=== PATIENT | female | born 1940 | race Caucasian/White ===

== ENCOUNTER 2023-01-26 08:52 | Outpatient (CLI) | payer OTHER, SELFPAY ==
--- NOTE | ~2023-01-26 | CT_ITS ---
Clinical Indication: Lymphoblastic lymphoma CT Scan of the Chest, Abdomen, and Pelvis without Contrast: Technique: Contiguous sections were acquired throughout the chest, abdomen, and pelvis without IV con trast administration. Dose reduction technique was used on this scan by utilizing automated exposure control and iterative reconstruction technique. The dose-length product (DLP) was 447.72 mGy-cm. Findings: There is no evidence of any significant mediastinal, hilar or axillary lymphadenopathy. The mediastin al soft tissues appear normal. There is no evidence of pleural or pericardial effusion. The lungs are clear. No pulmonary nodules or infiltrates are noted. The liver, spleen, pancreas, gallbladder, adrenals and kidneys are within normal limits. There are at herosclerotic calcifications of the aorta. No lymphadenopathy. No bowel obstruction or bowel wall thickening. There is no evidence to suggest acute appendicitis. Urinary bladder is unremarkable. No pelvic mass seen. No ascites. Mild compression deformity at the s uperior endplate of T11 present. Impression: No evidence for active malignancy or metastatic disease. No lymphadenopathy. Mild T11 compression fracture. Reviewed, dictated and finalized at location . RINTENDENT METERS Impression: No evidence for active malignancy or metastatic disease. No lymphadenopathy. Mild T11 compression fracture.
== END 2023-01-26 08:53 | disposition home or self-care (01) ==
PROVIDERS: PCP Family Medicine; Visit Provider Internal Medicine Hematology & Oncology
DX: C83.00 Small cell B-cell lymphoma, unspecified site (principal); M48.54XA Collapsed vertebra, not elsewhere classified, thoracic region, initial encounter for fracture
CPT/HCPCS: 36415; 71250; 74176; 80053; 82784; 83883; 84155; 84165; 85025; 85810

== ENCOUNTER 2023-01-26 09:28 | Outpatient (CLI) | payer OTHER, SELFPAY ==
[2023-01-26 10:20] LABS: Eosinophils Absolute Auto 0.1 K/mm3 (0-0.3); Eosinophils Percent Auto 1.4 % (0-4.4); Hematocrit 37.9 % (37.0-47.0); Immature Granulocyte Absolute 0.01 K/mm3 (0.00-0.031); Immature Granulocyte Percent A 0.2 % (0-0.5); Lymphocytes Absolute Auto 1.03 K/mm3 (0.9-3.2); Lymphocytes Percent Auto 24.6 % (18.3-44.2); Mean Corpuscular HGB Conc 34.3 g/dl (32-36); Mean Corpuscular Hemoglobin 33.7 pg (26-34); Mean Corpuscular Volume 98.2 fl (80-100); Monocytes Absolute Auto 0.4 K/mm3 (0.1-0.6); Monocytes Percent Auto 8.6 % (2.6-8.5); Neutrophils Absolute Auto 2.7 K/mm3 (1.3-6.7); Neutrophils Percent Auto 64.2 % (45.5-73.1); Platelet Count Result 344 k/mm3 (150-375); Red Blood Count 3.86 M/mm3 (4.2-5.4); Red Cell Distribution Width 13.2 % (11.5-14.5); White Blood Count 4.2 K/mm3 (4.5-10.0)
[2023-01-26 16:59] LABS: Potassium 4.2 mmol/L (3.4-5.0)
[2023-01-26 17:04] LABS: Alanine Aminotransferase 23 U/L (6-35); Albumin Level 3.5 g/dL (3.5-5.1); Alkaline Phosphatase 47 U/L (38-126); Anion Gap 6 mmol/L (8-16); Aspartate Amino Transferase 24 U/L (14-36); Bilirubin,Total 0.4 mg/dL (0.2-1.3); Blood Urea Nitrogen 22 mg/dL (7-17); Calcium 12.2 mg/dL (8.4-10.2); Carbon Dioxide 31 mmol/L (22-30); Chloride 103 mmol/L (98-107); Estimated Glomerular Filt Rate 60; Glucose 109 mg/dL (65-110); Sodium 140 mmol/L (137-145)
[2023-01-26 17:05] LABS: Immunoglobulin A < 40 mg/dL (70-400); Immunoglobulin G < 270 mg/dL (700-1600)
[2023-01-26 19:28] LABS: Immunoglobulin M 3866 mg/dL (40-230)
[2023-01-28 15:05] LABS: Abnormal Protein Band 1 2.5 g/dL; Albumin 3.4 g/dL (3.8-4.8); Alpha 1 Globulin 0.3 g/dL (0.2-0.3); Alpha 2 Globulin 0.7 g/dL (0.5-0.9); Beta 1 Globulin 0.4 g/dL (0.4-0.6); Gamma Globulin 2.9 g/dL (0.8-1.7)
[2023-01-28 15:35] LABS: Viscosity 2.6 rel to H2O (1.5-1.9)
[2023-01-30 21:33] LABS: Kappa\\Lambda Light Chains 18.39 (0.26-1.65); Lambda Light Chain 4.6 mg/L (5.7-26.3)
== END 2023-01-26 09:29 | disposition home or self-care (01) ==
PROVIDERS: PCP Family Medicine; Visit Provider Internal Medicine Hematology & Oncology
DX: C83.00 Small cell B-cell lymphoma, unspecified site (principal)
CPT/HCPCS: 36415; 80053; 82784; 83883; 84155; 84165; 85025; 85810

== ENCOUNTER 2023-02-04 12:12 | Outpatient (CLI) | payer OTHER, SELFPAY ==
--- NOTE | ~2023-02-04 | XR_ITS ---
EXAMINATION: BONE SURVEY/METASTATIC SURVEY INDICATION: Hypercalcemia TECHNIQUE: A skeletal survey was performed including AP views of the chest, abdomen and pelvis; AP an d lateral/lateral swimmers views of the cervical, thoracic and lumbar spine; lateral view of the skul l, and AP and lateral views of the appendicular skeleton excluding the hands and feet. COMPARISON: 01/26/2023 FINDINGS: No lytic or blastic osseous abnormality is identified. A T11 compression fracture is again noted. There is mild sacroiliac joint sclerosis on the right. Mild hip osteoarthritis is noted. There is mild lumbar spondylosis with 4 mm of anterolisthesis of L4 on L5. There is moderate to severe cer vical spondylosis. The lungs are clear. A moderate volume of colonic stool is present. IMPRESSION: 1. No radiographic correlate for hypercalcemia. Reviewed, dictated and finalized at location F.
[2023-02-04 14:13] LABS: Parathyroid Intact 30.4 pg/mL (7.5-53.5)
[2023-02-04 14:26] LABS: Vitamin D 25 Hydroxy 36.4 ng/mL
== END 2023-02-04 12:13 | disposition home or self-care (01) ==
LOC: ANHIMG 12:18
PROVIDERS: PCP Family Medicine; Visit Provider Internal Medicine Hematology & Oncology
DX: E83.52 Hypercalcemia (principal)
CPT/HCPCS: 36415; 77075; 82306; 83970

== ENCOUNTER 2023-04-14 12:23 | Outpatient (CLI) | payer OTHER, SELFPAY ==
[2023-04-14 12:36] LABS: Basophils Absolute Auto 0.1 K/mm3 (0.0-0.1); Eosinophils Absolute Auto 0.1 K/mm3 (0-0.3); Eosinophils Percent Auto 1.9 % (0-4.4); Hematocrit 36.3 % (37.0-47.0); Hemoglobin 12.4 g/dL (12.0-15.0); Immature Granulocyte Absolute 0.02 K/mm3 (0.00-0.031); Immature Granulocyte Percent A 0.4 % (0-0.5); Lymphocytes Absolute Auto 1.38 K/mm3 (0.9-3.2); Lymphocytes Percent Auto 26.7 % (18.3-44.2); Mean Corpuscular HGB Conc 34.2 g/dl (32-36); Mean Corpuscular Hemoglobin 34.2 pg (26-34); Monocytes Absolute Auto 0.5 K/mm3 (0.1-0.6); Monocytes Percent Auto 10.3 % (2.6-8.5); Neutrophils Absolute Auto 3.1 K/mm3 (1.3-6.7); Neutrophils Percent Auto 59.7 % (45.5-73.1); Platelet Count Result 330 k/mm3 (150-375); Red Blood Count 3.63 M/mm3 (4.2-5.4); Red Cell Distribution Width 13.2 % (11.5-14.5); White Blood Count 5.2 K/mm3 (4.5-10.0)
[2023-04-14 17:12] LABS: Alanine Aminotransferase 24 U/L (6-35); Albumin Level 3.6 g/dL (3.5-5.1); Alkaline Phosphatase 53 U/L (38-126); Anion Gap 6 mmol/L (8-16); Aspartate Amino Transferase 25 U/L (14-36); Bilirubin,Total 0.3 mg/dL (0.2-1.3); Blood Urea Nitrogen 22 mg/dL (7-17); Calcium 12.3 mg/dL (8.4-10.2); Carbon Dioxide 30 mmol/L (22-30); Chloride 102 mmol/L (98-107); Estimated Glomerular Filt Rate 60; Glucose 118 mg/dL (65-110); Potassium 4.4 mmol/L (3.4-5.0); Sodium 138 mmol/L (137-145)
== END 2023-04-14 12:24 | disposition home or self-care (01) ==
LOC: ANHLAB 12:25
PROVIDERS: PCP Family Medicine; Visit Provider Internal Medicine Hematology & Oncology
DX: E83.52 Hypercalcemia (principal)
CPT/HCPCS: 36415; 80047; 80053; 85025

== ENCOUNTER 2023-06-11 12:44 | Outpatient (CLI) | payer OTHER, SELFPAY ==
[2023-06-11 13:01] LABS: Basophils Absolute Auto 0.1 K/mm3 (0.0-0.1); Eosinophils Absolute Auto 0.1 K/mm3 (0-0.3); Eosinophils Percent Auto 1.6 % (0-4.4); Hematocrit 36.3 % (37.0-47.0); Hemoglobin 12.7 g/dL (12.0-15.0); Immature Granulocyte Absolute 0.01 K/mm3 (0.00-0.031); Immature Granulocyte Percent A 0.2 % (0-0.5); Lymphocytes Absolute Auto 1.11 K/mm3 (0.9-3.2); Lymphocytes Percent Auto 22.2 % (18.3-44.2); Mean Corpuscular Hemoglobin 34.4 pg (26-34); Mean Corpuscular Volume 98.4 fl (80-100); Mean Platelet Volume 8.9 fl (7.4-10.4); Monocytes Absolute Auto 0.3 K/mm3 (0.1-0.6); Neutrophils Absolute Auto 3.5 K/mm3 (1.3-6.7); Platelet Count Result 325 k/mm3 (150-375); Red Blood Count 3.69 M/mm3 (4.2-5.4)
[2023-06-14 15:32] LABS: Kappa\\Lambda Light Chains 19.29 (0.26-1.65); Lambda Light Chain 4.1 mg/L (5.7-26.3)
[2023-06-15 10:36] LABS: Abnormal Protein Band 1 2.9 g/dL; Albumin 4.1 g/dL (3.8-4.8); Alpha 1 Globulin 0.3 g/dL (0.2-0.3); Alpha 2 Globulin 0.7 g/dL (0.5-0.9); Beta 1 Globulin 0.5 g/dL (0.4-0.6); Gamma Globulin 3.2 g/dL (0.8-1.7)
== END 2023-06-11 12:45 | disposition home or self-care (01) ==
LOC: ANHLAB 12:46
PROVIDERS: PCP Family Medicine; Visit Provider Internal Medicine Hematology & Oncology
DX: C88.0 Waldenstrom macroglobulinemia (principal)
CPT/HCPCS: 36415; 80053; 82784; 83883; 84155; 84165; 85025

== ENCOUNTER 2023-06-17 12:56 | Outpatient (CLI) | payer OTHER, SELFPAY ==
[2023-06-18 01:47] LABS: Alanine Aminotransferase 20 U/L (6-35); Albumin Level 4.4 g/dL (3.5-5.1); Alkaline Phosphatase 57 U/L (38-126); Anion Gap 7 mmol/L (4-12); Aspartate Amino Transferase 27 U/L (14-36); Bilirubin,Total 0.6 mg/dL (0.2-1.3); Blood Urea Nitrogen 20 mg/dL (7-17); Calcium 10.7 mg/dL (8.4-10.2); Carbon Dioxide 26 mmol/L (22-30); Chloride 106 mmol/L (98-107); Estimated Glomerular Filt Rate > 60; Glucose 109 mg/dL (65-110); Potassium 4.9 mmol/L (3.4-5.0); Sodium 139 mmol/L (137-145)
[2023-06-18 02:32] LABS: Immunoglobulin A < 270 mg/dL (70-400); Immunoglobulin G < 40 mg/dL (700-1600)
[2023-06-18 02:35] LABS: Immunoglobulin M 1520 mg/dL (40-230)
[2023-06-22 22:02] LABS: Beta-2-Microglobulin 2.31 mg/L (<=2.51)
== END 2023-06-17 12:57 | disposition home or self-care (01) ==
PROVIDERS: PCP Family Medicine; Visit Provider Internal Medicine Hematology & Oncology
DX: C88.0 Waldenstrom macroglobulinemia (principal)
CPT/HCPCS: 36415; 80053; 82232; 82784

== ENCOUNTER 2023-07-07 00:44 | Day surgery (SDC) | payer OTHER, SELFPAY ==
[2023-07-06 17:35] VITALS: BMI 25.3
--- NOTE | ~2023-07-07 | BM_ITS ---
EXAMINATION: CCL bone marrow asp w bx diag ORDER COMPLETED DATE: 07/07/2023 10:14 INDICATION: Waldenstrom's macroglobulinemia TECHNIQUE: A time-out was performed to verify the patient's name, date of , and procedure to b e performed. The procedure including the risks and benefits was discussed with the patient. Risks dis cussed included bleeding, infection, nerve injury and allergic reaction. The patient understood the r isks and agreed to proceed. The skin overlying the right posterior iliac spine was prepped and draped in usual sterile fashion. Anesthetic was administered with 1% lidocaine subcutaneously. Moderate co nscious sedation was achieved with 50 mcg fentanyl IV. An 11 gauge needle was inserted into the right ilium with fluoroscopic guidance. Bone marrow was aspirated. An 8 gauge needle was then inserted int o the right ilium with fluoroscopic guidance. A core bone marrow biopsy was obtained. The needle was removed and the entry site was cleaned and dressed. There were no immediate complications. A total o f 17 fluoroscopic images were recorded. Fluoroscopy exposure time was 0.1 minutes. FINDINGS: Real-time fluoroscopy demonstrates the biopsy needle tip overlying the right posterior tomas c spine. IMPRESSION: 1. Successful fluoroscopic guided bone marrow aspiration. 2. Successful fluoroscopic guided bone marrow biopsy. Reviewed, dictated and finalized at location A.
[2023-07-07 07:56] VITALS: BP 122/63; PULSE 62; RESP 16; TEMP 36.6; O2SAT 100
[2023-07-07 08:51] LABS: Basophils Absolute Auto 0.1 K/mm3 (0.0-0.1); Basophils Percent Auto 1.2 % (0.2-1.2); Eosinophils Absolute Auto 0.1 K/mm3 (0-0.3); Eosinophils Percent Auto 2.9 % (0-4.4); Hematocrit 34.7 % (37.0-47.0); Hemoglobin 11.9 g/dL (12.0-15.0); Immature Granulocyte Absolute 0.01 K/mm3 (0.00-0.031); Immature Granulocyte Percent A 0.2 % (0-0.5); Lymphocytes Absolute Auto 1.21 K/mm3 (0.9-3.2); Lymphocytes Percent Auto 29.2 % (18.3-44.2); Mean Corpuscular HGB Conc 34.3 g/dl (32-36); Mean Corpuscular Volume 99.1 fl (80-100); Mean Platelet Volume 9.1 fl (7.4-10.4); Monocytes Absolute Auto 0.5 K/mm3 (0.1-0.6); Monocytes Percent Auto 11.1 % (2.6-8.5); Neutrophils Absolute Auto 2.3 K/mm3 (1.3-6.7); Neutrophils Percent Auto 55.4 % (45.5-73.1); Platelet Count Result 308 k/mm3 (150-375); Red Cell Distribution Width 13.2 % (11.5-14.5); White Blood Count 4.1 K/mm3 (4.5-10.0)
[2023-07-07 09:19] LABS: INR 1.1
--- NOTE | 2023-07-07 09:22 | WPDMODSED ---
Moderate Sedation Note-Pt Data Patient Data Diagnosis: Waldenstrom macroglobulinemia Present Complaint: Waldenstrom macroglobulinemia Procedure to be performed/Plan: bone marrow biopsy Allergies Allergy/AdvReac Type Severity Reaction Status Date / Time Penicillins Allergy Mild Hives Verified 07/07/23 07:49 aspirin Allergy Hives Verified 07/07/23 07:49 Iodinated Contrast Media Allergy Rash Verified 07/07/23 07:49 lactose Allergy gi issues Verified 07/07/23 07:49 diphenhydramine AdvReac Mild Anxiety Verified 07/07/23 07:49 [From Benadryl] pseudoephedrine AdvReac Mild Anxiety Verified 07/07/23 07:49 [From Sudafed] dye injections Allergy Severe Hives Uncoded 07/07/23 07:49 steroids Allergy Mild Anxiety Uncoded 07/07/23 07:49 Home Medications Medication Instructions Recorded Confirmed Type clindamycin HCl 300 mg capsule 300 mg PO QID 07/06/23 07/06/23 History Sedation/Anesthesia: No previous sedation/anesthesia problems (including family history). [facility] Past Medical History Medical History Allergies Anxiety Arthritis Waldenstrom macroglobulinemia (~2017) Surgical History Surgical History History of appendectomy (~1982) History of colonoscopy (~01/13/11) History of cone biopsy of cervix (~1981) History of total abdominal hysterectomy (~1982) History of tubal ligation (~1979) Family History Family History Father Heart disease Son Heart disease Unknown DVT (deep venous thrombosis) Cerebrovascular accident Mother Dementia Social History Social History Social History: Moved to area from [place], [place]. She lives alone. She relocated to be near her daughter. Smoking packs per day: 0.25 Smoking cigarettes per day: 5.0 Years smoked: 8 Smoking pack-years: 2.00 Smoking status: Former smoker Tobacco type: cigarettes Second hand tobacco smoke exposure: Yes Smoking end date: 03/16/19 Alcohol intake: current Alcohol use details: socially Substance use: never Substance use type: does not use Lack of Transportation: No Lack of Food: Never True Current Housing: I Have Housing Concerned About Future Housing: No Difficulty Paying Gas/Electric Bills: No Difficulty Paying for Meds: No Currently Unemployed: No Education: High School Diploma/GED Difficulty w/ Childcare or Family Care: No Living arrangements: alone Spiritual care concerns: No Agree to blood products: Yes Mod Sed Physical Exam Physical Exam Pre Procedural Exam: Normal: Appearance, Eyes, Throat, Lungs, Heart Rate and Heart Rhythm Hours since solid foods: 12 Hours since liquid intake: 12 Mallampati Classification: class II Internal Medicine - PN: Obj Da Vital Signs Vital Signs: Vital Signs - 24 hr 07/07/23 07:56 Temperature 97.8 F Pulse Rate 62 Respiratory Rate 16 Blood Pressure 122/63 Pulse Oximetry 100 Oxygen Delivery Room Air Labs 07/07/23 08:50 Labs: Laboratory Results - last 24 hr 07/07/23 08:50 WBC 4.1 L RBC 3.50 L Hgb 11.9 L Hct 34.7 L MCV 99.1 MCH 34.0 MCHC 34.3 RDW 13.2 Plt Count 308 MPV 9.1 Immature Gran % (Auto) 0.2 Neut % (Auto) 55.4 Lymph % (Auto) 29.2 Otero % (Auto) 11.1 H Eos % (Auto) 2.9 Baso % (Auto) 1.2 Lymph # (Auto) 1.21 Otero # (Auto) 0.5 Eos # (Auto) 0.1 Baso # (Auto) 0.1 Abs Immat Gran (auto) 0.01 Absolute Neuts (auto) 2.3 Absolute Nucleated RBC 0.000 Nucleated RBC % 0.0 PT 15.0 H INR 1.1 ASA Classification/Sedation ASA Classification/Sedation ASA Class: II Emergent: No Risks: Risks, benefits and alternatives explained and patient/family accepted plan for sedation. Patient re-evaluated immediately prior to sedation.
[2023-07-07 09:53] VITALS: BP 130/55; PULSE 61; RESP 14; TEMP 36.6; O2SAT 98
[2023-07-07 10:00] VITALS: BP 125/71; PULSE 58; RESP 18; O2SAT 98
[2023-07-07 10:15] VITALS: BP 118/71; PULSE 61; RESP 18; O2SAT 94
[2023-07-07 10:30] VITALS: BP 111/62; PULSE 70; RESP 14; O2SAT 98
[2023-07-07 10:45] VITALS: BP 111/60; PULSE 60; RESP 15; TEMP 36.6; O2SAT 97
== END 2023-07-07 10:50 | disposition home or self-care (01) ==
PROVIDERS: Radiology Diagnostic Radiology; PCP Family Medicine; Referring Provider Internal Medicine Hematology & Oncology; Visit Provider Radiology Diagnostic Radiology
DX: C88.0 Waldenstrom macroglobulinemia (principal)
CPT/HCPCS: 36415; 38222; 85025; 85610; 88305; 88311; 88313; 88341; 88342; 88364; 88365; J1642; J3010

== ENCOUNTER 2023-07-28 10:28 | Outpatient (CLI) | payer OTHER, SELFPAY ==
[2023-07-28 20:55] LABS: Immunoglobulin A < 40 mg/dL (70-400); Immunoglobulin G < 270 mg/dL (700-1600); Immunoglobulin M > 4000 mg/dL (40-230)
[2023-07-30 11:59] LABS: Lambda Light Chain 4.1 mg/L (5.7-26.3)
[2023-07-31 01:55] LABS: Protein, Total 8.9 g/dL (6.1-8.1)
[2023-07-31 09:13] LABS: Abnormal Protein Band 1 3.3 g/dL (NONE DETECTED); Albumin 3.8 g/dL (3.8-4.8); Alpha 1 Globulin 0.3 g/dL (0.2-0.3); Alpha 2 Globulin 0.7 g/dL (0.5-0.9); Beta 1 Globulin 0.4 g/dL (0.4-0.6); Gamma Globulin 3.4 g/dL (0.8-1.7)
== END 2023-07-28 10:29 | disposition home or self-care (01) ==
PROVIDERS: PCP Family Medicine; Visit Provider Internal Medicine Hematology & Oncology
DX: C88.0 Waldenstrom macroglobulinemia (principal)
CPT/HCPCS: 36415; 82784; 83883; 84155; 84165

== ENCOUNTER 2023-08-28 11:22 | Outpatient (CLI) | payer OTHER, SELFPAY ==
[2023-08-28 11:46] LABS: Basophils Percent Auto 0.9 % (0.2-1.2); Eosinophils Absolute Auto 0.1 K/mm3 (0-0.3); Eosinophils Percent Auto 1.8 % (0-4.4); Hematocrit 37.4 % (37.0-47.0); Hemoglobin 12.5 g/dL (12.0-15.0); Immature Granulocyte Absolute 0.01 K/mm3 (0.00-0.031); Immature Granulocyte Percent A 0.2 % (0-0.5); Lymphocytes Percent Auto 31.3 % (18.3-44.2); Mean Corpuscular HGB Conc 33.4 g/dl (32-36); Mean Corpuscular Hemoglobin 32.6 pg (26-34); Mean Corpuscular Volume 97.7 fl (80-100); Mean Platelet Volume 10.4 fl (7.4-10.4); Monocytes Absolute Auto 0.7 K/mm3 (0.1-0.6); Monocytes Percent Auto 14.7 % (2.6-8.5); Neutrophils Absolute Auto 2.3 K/mm3 (1.3-6.7); Neutrophils Percent Auto 51.1 % (45.5-73.1); Platelet Count Result 274 k/mm3 (150-375); Red Blood Count 3.83 M/mm3 (4.2-5.4); Red Cell Distribution Width 13.2 % (11.5-14.5); White Blood Count 4.5 K/mm3 (4.5-10.0)
[2023-08-28 11:52] LABS: Blood Urea Nitrogen 19 mg/dL (8-26); Carbon Dioxide 30 mmol/L (22-30); Chloride 102 mmol/L (98-109); Estimated Glomerular Filt Rate 60; Glucose 87 mg/dL (70-105); Ionized Calcium (POC) 1.23 mmol/L (1.11-1.31); Potassium 4.5 mmol/L (3.5-4.9); Sodium 140 mmol/L (138-146)
[2023-08-28 16:38] LABS: Alanine Aminotransferase 21 U/L (6-35); Alkaline Phosphatase 38 U/L (38-126); Anion Gap 2 mmol/L (4-12); Aspartate Amino Transferase 22 U/L (14-36); Bilirubin,Total 0.6 mg/dL (0.2-1.3); Blood Urea Nitrogen 19 mg/dL (7-17); Calcium 10.8 mg/dL (8.4-10.2); Carbon Dioxide 30 mmol/L (22-30); Chloride 105 mmol/L (98-107); Estimated Glomerular Filt Rate 53; Glucose 97 mg/dL (65-110); Potassium 4.5 mmol/L (3.4-5.0); Sodium 137 mmol/L (137-145)
== END 2023-08-28 11:23 | disposition home or self-care (01) ==
PROVIDERS: PCP Physician Assistant Medical; Visit Provider Internal Medicine Hematology & Oncology
DX: C88.0 Waldenstrom macroglobulinemia (principal)
CPT/HCPCS: 36415; 80047; 80053; 85025

== ENCOUNTER 2023-09-30 11:38 | Outpatient (CLI) | payer OTHER, SELFPAY | END 2023-09-30 11:39 | PROVIDERS: PCP Family Medicine; Visit Provider Family Medicine | DX: M25.561 Pain in right knee (principal) | CPT/HCPCS: 73564 ==

== ENCOUNTER 2023-10-19 09:09 | Outpatient (CLI) | payer OTHER, SELFPAY ==
[2023-10-19 09:37] LABS: Basophils Absolute Auto 0.1 K/mm3 (0.0-0.1); Basophils Percent Auto 1.4 % (0.2-1.2); Eosinophils Absolute Auto 0.1 K/mm3 (0-0.3); Eosinophils Percent Auto 2.5 % (0-4.4); Hematocrit 41.3 % (37.0-47.0); Hemoglobin 13.7 g/dL (12.0-15.0); Immature Granulocyte Absolute 0.06 K/mm3 (0.00-0.031); Immature Granulocyte Percent A 1.1 % (0-0.5); Lymphocytes Absolute Auto 1.49 K/mm3 (0.9-3.2); Lymphocytes Percent Auto 26.6 % (18.3-44.2); Mean Corpuscular HGB Conc 33.2 g/dl (32-36); Mean Corpuscular Hemoglobin 31.9 pg (26-34); Mean Platelet Volume 10.3 fl (7.4-10.4); Monocytes Absolute Auto 0.6 K/mm3 (0.1-0.6); Monocytes Percent Auto 10.7 % (2.6-8.5); Neutrophils Absolute Auto 3.2 K/mm3 (1.3-6.7); Neutrophils Percent Auto 57.7 % (45.5-73.1); Platelet Count Result 288 k/mm3 (150-375); Red Cell Distribution Width 13.1 % (11.5-14.5); White Blood Count 5.6 K/mm3 (4.5-10.0)
[2023-10-19 10:03] LABS: Alanine Aminotransferase 63 U/L (6-35); Albumin Level 4.3 g/dL (3.5-5.1); Alkaline Phosphatase 53 U/L (38-126); Anion Gap 10 mmol/L (4-12); Aspartate Amino Transferase 39 U/L (14-36); Bilirubin,Total 0.5 mg/dL (0.2-1.3); Blood Urea Nitrogen 18 mg/dL (7-17); Calcium 9.1 mg/dL (8.4-10.2); Carbon Dioxide 28 mmol/L (22-30); Chloride 101 mmol/L (98-107); Estimated Glomerular Filt Rate > 60; Glucose 95 mg/dL (65-110); Sodium 139 mmol/L (137-145)
[2023-10-19 13:11] LABS: Immunoglobulin A < 40 mg/dL (70-400); Immunoglobulin G < 270 mg/dL (700-1600)
[2023-10-19 13:58] LABS: Immunoglobulin M 1838 mg/dL (40-230)
[2023-10-20 11:47] LABS: Kappa\\Lambda Light Chains 3.67 (0.26-1.65); Lambda Light Chain 4.3 mg/L (5.7-26.3)
[2023-10-20 13:03] LABS: Abnormal Protein Band 1 1.4 g/dL (NONE DETECTED); Albumin 3.8 g/dL (3.8-4.8); Alpha 1 Globulin 0.3 g/dL (0.2-0.3); Alpha 2 Globulin 0.7 g/dL (0.5-0.9); Beta 1 Globulin 0.5 g/dL (0.4-0.6); Gamma Globulin 1.6 g/dL (0.8-1.7)
== END 2023-10-19 09:10 | disposition home or self-care (01) ==
LOC: ANHLAB 09:10
PROVIDERS: PCP Family Medicine; Visit Provider Internal Medicine Hematology & Oncology
DX: C88.0 Waldenstrom macroglobulinemia (principal)
CPT/HCPCS: 36415; 80053; 82784; 83883; 84155; 84165; 85025

== ENCOUNTER 2023-12-02 09:52 | Outpatient (CLI) | payer OTHER, SELFPAY ==
--- NOTE | ~2023-12-02 | DEXA_ITS ---
Bone Density Report Name: KESHIA BLAIR Age: 83 Sex: Female Ethnicity: White Date of : 1940 Indication: postmenopausal; screening for osteoporosis; height loss; prior fracture; cancer; rheumatoid arthritis; Referring Provider: SHAUN DILLON Study: Bone densitometry was performed. Exam Date: December 02, 2023 Accession number: [id number] Bone Density: Region BMD T-score Z-score Classification AP Spine(L1-L4) 0.899 -1.3 1.4 Osteopenia Femoral Neck (Left) 0.712 -1.2 1.2 Osteopenia Total Hip (Left) 0.874 -0.6 1.6 Normal Femoral Neck (Right) 0.653 -1.8 0.6 Osteopenia Total Hip (Right) 0.793 -1.2 1.0 Osteopenia Total Hip Mean 0.834 -0.9 1.3 Normal World Health Organization criteria for BMD impression classify patients as: Normal (T-score at or above -1.0), Osteopenia (T-score between -1.0 and -2.5), or Osteoporosis (T-score at or below -2.5). 10-year Fracture Risk(1): Major Osteoporotic Fracture 26% Hip Fracture 7.2% Reported Risk Factors: [place] (), Neck BMD=0.653, BMI=29.4, previous fracture, rheumatoid arthritis (1) FRAX(R) Version 3.08. Fracture probability calculated for an untreated patient. Fracture probability may be lower if the patient has received treatment. Clinical Information Provided by Patient: Has had a low trauma fracture Has rheumatoid arthritis Has used the following medications: Vitamin D Has the following medical conditions: Cancer, burkinsa Patient maximum height was 62 Menopause Age: 51 Does not regularly consume dairy products Onset of menses at age 12 Number of children 3 Impression: The patient has low bone mass, based on the Right Femoral Neck T-score. The patient has an estimated ten-year risk of hip fracture of 7.2% and an estimated ten-year risk of major fracture of 26%, based on the WHO FRAX algorithm. The patient has risk factors, including: previous fracture. Discussion: BONE DENSITY IS LOW AT ONE OR MORE SKELETAL SITES. THE PATIENT'S BMD AND CLINICAL RISK FACTORS CONTRIBUTE TO THIS PATIENT'S HIGH RISK OF FRACTURE. This patient's lowest T-score is low at one or more skeletal sites. It meets the World Health Organization's (WHO) criteria for ?low bone mass? (T-score between -1.0 and -2.5). The patient's 10-year risk of hip fracture and 10 year risk of a major osteoporotic fracture as calculated by FRAX exceeds the threshold where pharmacological therapy is recommended by the National Osteoporosis Foundation (NOF). However, all treatment decisions require clinical judgment and consideration of individual patient factors, including patient preferences, comorbidities, previous drug use, risk factors not captured in the FRAX model (e.g., frailty, falls, vitamin D deficiency, increased bone turnover, interval significant decline in bone
== END 2023-12-02 09:53 | disposition home or self-care (01) ==
LOC: ANHIMG 09:57
PROVIDERS: PCP Family Medicine; Visit Provider Family Medicine
DX: Z78.0 Asymptomatic menopausal state (principal); S22.080A Wedge compression fracture of T11-T12 vertebra, initial encounter for closed fracture; X58.XXXA Exposure to other specified factors, initial encounter; M85.88 Other specified disorders of bone density and structure, other site; M85.852 Other specified disorders of bone density and structure, left thigh; M85.851 Other specified disorders of bone density and structure, right thigh
CPT/HCPCS: 77080

== ENCOUNTER 2023-12-21 11:48 | Outpatient (CLI) | payer OTHER, SELFPAY ==
[2023-12-21 12:06] LABS: Basophils Absolute Auto 0.1 K/mm3 (0.0-0.1); Basophils Percent Auto 0.9 % (0.2-1.2); Eosinophils Absolute Auto 0.1 K/mm3 (0-0.3); Hematocrit 43.7 % (37.0-47.0); Immature Granulocyte Absolute 0.04 K/mm3 (0.00-0.031); Immature Granulocyte Percent A 0.7 % (0-0.5); Lymphocytes Absolute Auto 1.28 K/mm3 (0.9-3.2); Lymphocytes Percent Auto 22.8 % (18.3-44.2); Mean Corpuscular Hemoglobin 31.2 pg (26-34); Mean Corpuscular Volume 97.3 fl (80-100); Mean Platelet Volume 10.6 fl (7.4-10.4); Monocytes Absolute Auto 0.7 K/mm3 (0.1-0.6); Monocytes Percent Auto 11.6 % (2.6-8.5); Neutrophils Absolute Auto 3.5 K/mm3 (1.3-6.7); Platelet Count Result 261 k/mm3 (150-375); Red Blood Count 4.49 M/mm3 (4.2-5.4); Red Cell Distribution Width 13.2 % (11.5-14.5); White Blood Count 5.6 K/mm3 (4.5-10.0)
[2023-12-21 13:41] LABS: Alanine Aminotransferase 23 U/L (6-35); Albumin Level 4.4 g/dL (3.5-5.1); Alkaline Phosphatase 60 U/L (38-126); Anion Gap 9 mmol/L (4-12); Aspartate Amino Transferase 25 U/L (14-36); Bilirubin,Total 0.7 mg/dL (0.2-1.3); Blood Urea Nitrogen 18 mg/dL (7-17); Calcium 9.4 mg/dL (8.4-10.2); Carbon Dioxide 27 mmol/L (22-30); Chloride 103 mmol/L (98-107); Estimated Glomerular Filt Rate > 60; Glucose 92 mg/dL (65-110); Potassium 4.5 mmol/L (3.4-5.0); Sodium 139 mmol/L (137-145)
[2023-12-21 14:22] LABS: Immunoglobulin A < 40 mg/dL (70-400); Immunoglobulin G < 270 mg/dL (700-1600)
[2023-12-21 16:02] LABS: Immunoglobulin M 1918 mg/dL (40-230)
[2023-12-23 05:33] LABS: Protein, Total 6.9 g/dL (6.1-8.1)
[2023-12-23 15:34] LABS: Abnormal Protein Band 1 1.2 g/dL (NONE DETECTED); Alpha 1 Globulin 0.3 g/dL (0.2-0.3); Alpha 2 Globulin 0.7 g/dL (0.5-0.9); Beta 1 Globulin 0.5 g/dL (0.4-0.6); Gamma Globulin 1.3 g/dL (0.8-1.7)
[2023-12-23 16:20] LABS: Kappa\\Lambda Light Chains 3.23 (0.26-1.65)
== END 2023-12-21 11:49 | disposition home or self-care (01) ==
LOC: ANHLAB 11:50
PROVIDERS: PCP Family Medicine; Visit Provider Internal Medicine Hematology & Oncology
DX: C88.00 Waldenstrom macroglobulinemia not having achieved remission (principal)
CPT/HCPCS: 36415; 80053; 82784; 83883; 84155; 84165; 85025

== ENCOUNTER 2023-12-30 13:05 | Outpatient (CLI) | payer OTHER, SELFPAY ==
--- NOTE | ~2023-12-30 | MM_ITS ---
EXAMINATION: MM screening bia BI w emi HISTORY: Screening TECHNIQUE: Craniocaudal and mediolateral oblique 3-D tomosynthesis images were obtained and synthetic 2-D images were generated. CAD analysis was submitted and interpreted. COMPARISON: No prior mammogram is available for comparison at this institution. BREAST PARENCHYMAL COMPOSITION: Not dense: There are scattered areas of fibroglandular density. FINDINGS: There is a focal asymmetry in the upper inner quadrant of the left breast, middle third. No mammographic evidence for malignancy in the left breast. IMPRESSION: 1. Focal left breast asymmetry. 2. Recommend comparison to previous outside mammograms. BI-RADS Category 0: Incomplete: Needs additional imaging evaluation. Reviewed, dictated and finalized at location B.
== END 2023-12-30 13:06 | disposition home or self-care (01) ==
LOC: ANHIMG 13:09
PROVIDERS: PCP Family Medicine; Visit Provider Family Medicine
DX: Z12.31 Encounter for screening mammogram for malignant neoplasm of breast (principal); R92.8 Other abnormal and inconclusive findings on diagnostic imaging of breast
CPT/HCPCS: 77063; 77067

== ENCOUNTER 2024-02-02 13:06 | Outpatient (CLI) | payer OTHER, SELFPAY ==
--- NOTE | ~2024-02-02 | MMUS_ITS ---
CORRECTED REPORT added w emi to examination JMG 02/03/24 This report was recreated on 02/03/24. Original report was LIFT OPERATOR EXAMINATION: MM diagnostic mammo unilat LT w emi, US breast LT limited HISTORY: Left breast asymmetry TECHNIQUE: Additional 3-D tomosynthesis images of the left breast were performed and synthetic 2-D images were generated. CAD analysis was submitted and interpreted. High resolution limited left breast ultrasound was performed. COMPARISON: 12/30/2023 BREAST PARENCHYMAL COMPOSITION:Not Dense. There are scattered areas of fibroglandular density. FINDINGS: MAMMOGRAPHIC FINDINGS: There is effacement of asymmetry with spot compression. No definite mass lesion or distortion seen. ULTRASOUND: Sonographic imaging at the upper, inner left breast and states no solid or cystic lesion. No sonographic abnormality seen in the region scanned. IMPRESSION: No evidence for malignancy. The left breast asymmetry effaces with spot compression, and there is no sonographic correlate in this region. BI-RADS Category 1: Negative Reviewed, dictated and finalized at location M. LIFT OPERATOR MTDD IMPRESSION: No evidence for malignancy. The left breast asymmetry effaces with spot compre ssion, and there is no sonographic correlate in this region. BI-RADS Category 1: Negative
== END 2024-02-02 13:07 | disposition home or self-care (01) ==
LOC: ANHIMG 13:07
PROVIDERS: PCP Family Medicine; Visit Provider Family Medicine
DX: R92.8 Other abnormal and inconclusive findings on diagnostic imaging of breast (principal)
CPT/HCPCS: 76642; 77061; 77065; G0279

== ENCOUNTER 2024-04-04 09:16 | Outpatient (CLI) | payer OTHER, SELFPAY ==
--- NOTE | ~2024-04-04 | XR_ITS ---
XR lumbar spine min 4V 04/04/2024 09:50 Indication: Low back pain Procedure: 5 views lumbar spine Comparison: No prior studies for comparison. Findings: There is grade 1 degenerative spondylolisthesis at L4-5 and L5-S1. Vertebral body heights a re maintained. There is mild dextroscoliosis centered at the thoracolumbar junction. Pedicles intact. No evidence for spondylolysis. There is disc narrowing at all lumbar levels. There is atherosclerosi s of the aorta. Impression: 1: Moderate lumbar spondylosis with grade 1 degenerative spondylolisthesis at L4-5 and L5-S1. Reviewed, dictated and finalized at location A. CTOR SOCIAL Impression: 1: Moderate lumbar spondylosis with grade 1 degenerative spondylolisthesis at L 4-5 and L5-S1.
== END 2024-04-04 09:17 | disposition home or self-care (01) ==
LOC: MICIMG 09:18
PROVIDERS: PCP Family Medicine; Visit Provider Family Medicine
DX: M47.816 Spondylosis without myelopathy or radiculopathy, lumbar region (principal); M43.16 Spondylolisthesis, lumbar region
CPT/HCPCS: 72110

== ENCOUNTER 2024-04-04 10:00 | Outpatient (CLI) | payer OTHER, SELFPAY ==
[2024-04-04 10:15] LABS: Basophils Absolute Auto 0.1 K/mm3 (0.0-0.1); Basophils Percent Auto 0.9 % (0.2-1.2); Eosinophils Absolute Auto 0.1 K/mm3 (0-0.3); Eosinophils Percent Auto 0.9 % (0-4.4); Hematocrit 43.2 % (37.0-47.0); Hemoglobin 13.7 g/dL (12.0-15.0); Immature Granulocyte Absolute 0.06 K/mm3 (0.00-0.031); Immature Granulocyte Percent A 0.8 % (0-0.5); Lymphocytes Absolute Auto 1.31 K/mm3 (0.9-3.2); Lymphocytes Percent Auto 17.5 % (18.3-44.2); Mean Corpuscular HGB Conc 31.7 g/dl (32-36); Mean Corpuscular Hemoglobin 30.9 pg (26-34); Mean Corpuscular Volume 97.5 fl (80-100); Mean Platelet Volume 10.2 fl (7.4-10.4); Monocytes Absolute Auto 0.7 K/mm3 (0.1-0.6); Monocytes Percent Auto 9.7 % (2.6-8.5); Neutrophils Absolute Auto 5.3 K/mm3 (1.3-6.7); Neutrophils Percent Auto 70.2 % (45.5-73.1); Platelet Count Result 312 k/mm3 (150-375); Red Blood Count 4.43 M/mm3 (4.2-5.4); Red Cell Distribution Width 13.3 % (11.5-14.5); White Blood Count 7.5 K/mm3 (4.5-10.0)
[2024-04-04 11:28] LABS: Alanine Aminotransferase 24 U/L (6-35); Albumin Level 3.8 g/dL (3.5-5.1); Alkaline Phosphatase 31 U/L (38-126); Anion Gap 3 mmol/L (4-12); Aspartate Amino Transferase 22 U/L (14-36); Bilirubin,Total 0.7 mg/dL (0.2-1.3); Blood Urea Nitrogen 20 mg/dL (7-17); Calcium 11.6 mg/dL (8.4-10.2); Carbon Dioxide 33 mmol/L (22-30); Chloride 103 mmol/L (98-107); Estimated Glomerular Filt Rate > 60; Glucose 81 mg/dL (65-110); Potassium 4.2 mmol/L (3.4-5.0); Sodium 139 mmol/L (137-145)
[2024-04-04 12:13] LABS: Immunoglobulin A < 40 mg/dL (70-400); Immunoglobulin G < 270 mg/dL (700-1600)
[2024-04-04 12:36] LABS: Immunoglobulin M 1372 mg/dL (40-230)
[2024-04-05 13:33] LABS: Lambda Light Chain 5.3 mg/L (5.7-26.3)
[2024-04-05 13:43] LABS: Protein, Total 6.6 g/dL (6.1-8.1)
--- OUTSIDE RECORDS SUMMARY | 2024-04-07 12:38 | XMS_ITS | Clinical Summary ---
Author Organization [facility] Johanna medrano Jeannette Address [address] [place] [address] Care Team Providers Care Bath Tester Name Role Phone Kimberly Turner MD Primary Care Provider [phone] Allergies Active Allergy Reactions Criticality Noted Date Comments Aspirin Rash Low 01/02/2023 Iodinated Contrast Media Rash Low 01/02/2023 Nsaids (Non-Steroidal Anti-I nflammatory Drug) Anxiety Low 10/26/2023 Penicillins Rash Low 01/02/2023 Medications CALCIUM CARBONATE-VITAM IN D3 ORAL Take by mouth. Active acetaminophen (TYLENOL ARTHRITIS) 650 mg Extended Release tablet Take 650 mg by mouth every 6 hours as needed for Pain. Active alendronate (FOSAMAX) 70 mg tablet TAKE 1 TABLET (70 MG) BY MOUTH EVERY 7 DAYS ON AN EMPTY STOMACH BEFORE OTHER MEDS,WITH 8OZ OF WATER, STAY UPRIGHT 30 MIN 12 Tablet 1 03/14/20 24 Active zanubrutinib 80 mg capsuleIndicati ons:Macroglobul inemia of Waldenstrom Take 2 Capsules (160 mg) by mouth 2 times daily. 120 Capsule 3 03/22/19 25 Active zanubrutinib 80 mg capsule Take 2 Capsules (160 mg) by mouth 2 times daily. 120 Capsule 3 4 3:19 PM WASTE COLLECTION DRIVER 12/24/19 24 025 Discontinued(Re order) alendronate (FOSAMAX) 70 mg tablet Take 1 Tablet (70 mg) by mouth every 7 days. empty stomach before other meds,with 8oz of water, stay upright 30 min 4 Tablet 3 01/01/20 24 024 Discontinued zanubrutinib 80 mg capsule Take 2 Capsules (160 mg) by mouth 2 times daily. 120 Capsule 3 03/20/19 25 025 Discontinued(Re order) Active Problems No known active problems Encounters Date Type Department Care Team Description 04/05/2024 Orders Only [facility] Oncology and H[facility]ology - [place] [address] [place] [address] Luis Eduardo Dumont MD 03/25/2024 Abstract [facility] - [place] [address] [place] [address] Luis Eduardo Dumont MD 03/22/2024 Refill [facility] - [place] [address] [place] [phone] Luis Eduardo Dumont MD Macroglobulinemia of Waldenstrom (Primary Dx) 03/22/2024 Specialty Pharmacy [facility] [address] [place] [phone] Isa Gutierrez, PHARMACIST 03/20/2024 Refill [facility] - [place] [address] [place] [address] Luis Eduardo Dumont MD 03/15/2024 Specialty Pharmacy [facility] [address] [place] [phone] Isa Gutierrez, PHARMACIST Specialty Pharmacy Refill Coordination 03/14/2024 Refill [facility]ology - [place] [address] [place] [address] Luis Eduardo Dumont MD 02/16/2024 Specialty Pharmacy [facility] [address] [place] [phone] Belia Amaro, PHARMACIST Specialty Pharmacy Refill Coordination 01/27/2024 Specialty Pharmacy [facility] [address] [place] [phone] Belia Amaro, PHARMACIST Specialty Pharmacy Refill Coordination 01/12/2024 Telephone [facility]ology - [place] [address] [place] [phone] Luis Eduardo Dumont MD Medication Review from Last 3 Months Family History Medical History Relation Name Comments Heart Disease Brother 1 Heart Disease Father Heart Disease Sister 1 Relation Name Status Comments Brother 1 Alive Brother 2 Alive Daughter Alive Father Mother Sister 1 Alive Sister 2 Alive Son 1 Alive Son 2 Alive Social History Tobacco Use Types Packs/Day Years Used Date Smoking Tobacco: Former Cigarettes 0.3 38 1 962 - 2000 Smokeless Tobacco: Never Tobacco Cessation:Counseling Given: Not Answered Alcohol Use Standard Drinks/Week Comments Never 0 (1 standard drink = 0.6 oz pur e alcohol) Comments Unknown Sex and Gender Information Value Date Recorded Sex Assigned at Not on file Legal Sex Female 12:11 PM CDT Gender Identity Not on file Sexual Orientation Not on file Last Filed Vital Signs Vital Sign Reading Time Taken Comments Blood Pressure 137/75 01/01/2024 12:41 PM CDT Pulse 59 01/01/2024 12:33 PM CDT Temperature 36.4 ??C (97.5 ??F) 01/01/2024 12:33 PM C DT Respiratory Rate 16 01/01/2024 12:33 PM CDT Oxygen Saturation 97% 01/01/2024 12:33 PM CDT Inhaled Oxygen Concentration - - Weight 62.3 kg (137 lb 6.4 oz) 01/01/2024 12:33 PM CDT Height 157.5 cm (5' 2 ) 01/02/2023 2:08 PM CDT Body Mass Index 25.13 01/02/2023 2:08 PM CDT Plan of Treatment Upcoming Encounters Date Type Department Care Team (Late st Contact Info) Description 04/08/2024 12:00 PM WASTE COLLECTION DRIVER Office Visit [facility] Oncology and Hematology - [place] [address] [place] [phone] Luis Eduardo Dumont MD [address] [facility] [address] [place] [phone] Health Maintenance Due Date Last Done Comments DTAP/TDAP/TD VACCINES (1 - Tdap) 1959 PNEUMOCOCCAL VACCINE 65+ YEARS (1 of 1 - PCV) 09/24/18 92 ZOSTER VACCINE (1 of 2) 09/25/1991 OSTEOPOROSIS SCREENING 2006 RSV VACCINE (60+ or ) (1 - 1-dose 75+ series) 2016 INFLUENZA VACCINE (#1) 2023 [place] Prev entative Visit/Annual Wellness Visit 03/16/2024 Procedures Procedure Name Priority Date/Time Associated Diagnosis Comments COMPREHENSIVE METABOLIC PANEL Routine 04/04/2024 1:33 PM WASTE COLLECTION DRIVER CBC WITH DIFFERENTIAL Routine 04/04/2024 11:29 AM WASTE COLLECTION DRIVER from Last 3 Months Results * COMPREHENSIVE METABOLIC PANEL (04/04/2024 1:33 PM WASTE COLLECTION DRIVER) Blood us Luis Eduardo Dumont MD CHEMISTRY ORDERABLES Final Resu lt * CBC WITH DIFFERENTIAL (04/04/2024 11:29 AM WASTE COLLECTION DRIVER) Blood us Luis Eduardo Dumont MD HEMATOLOGY ORDERABLES Final Res ult from Last 3 Months Insurance [employer] PPO MCR RX MEDIMPACT Member Subscriber Plan / Payer (Ef fective 2023-Present) Name:Alyssa Davis Relation to Subscriber:Self Name:Alyssa Davis Payer ID:Not on file Group ID:[id number] Type:RX Medicare Part D Address: [address] [place] [facility] Medicare Part D RX [employer] Medicare Part D Care Teams Bath Tester Relationship Specialty Start Date End Date Kimberly Turner MD [address] [place] [phone] PCP - General Family Practice 01/02/23
--- OUTSIDE RECORDS SUMMARY | 2024-04-07 12:38 | XMS_ITS | Encounter Summary ---
Author Organization [facility] Health Address [address] [facility] [place] [place] [address] Care Team Providers Care Controller [place] Name Role Phone Unavailable Primary Care Provider Unavailabl e Encounter Details Date Type Department Care Team (Latest Contact Info) Description 07/07/2023 Lab Requisition [facility] - Pathology Lab [address] [place] [phone] Miguel Reyna MD [address] [address] Waldenstrom macroglobulinemia (HCC) Social History Tobacco Use Types Packs/Day Years Used Date Smoking Tobacco: Never Assessed Sex and Gender Information Value Date Recorded Sex Assigned at Not on file Gender Identity Not on file Sexual Orientation Not on file documented as of this encounter Plan of Treatment Not on file documented as of this encounter Procedures Procedure Name Priority Date/Time Associated Diagnosis Comments FLOW CYTOMETRY BONE MARROW Routine 07/07/2023 10:40 AM CDT Waldenstrom macroglobulinemia (HCC) documented in this encounter Results * FLOW CYTOMETRY BONE MARROW (07/07/2023 10:40 AM CDT) Case Report Flow Cytometry ?Case: [id number] ? Authorizing Provider: ??Miguel Reyna ? Collected: ? 07/07/2023 10:40 AM ? MD John ? [facility] ??Received: ?07/07/2023 12:52 PM ? Pathology Lab ? Pathologist: ? Gabi David MD ? Specimen: ?Bone Marrow ? 07/07/2023 3:41 PM CDT [facility] Final Diagnosis Bone marrow, flow cytometry: - Apparent clonal B-cell population detected (~5% of overall cellularity) 07/07/2023 3:41 PM CDT [facility] Flow Cytometry Interpretation Viability: 71% B-cells: monoclonal, kappa-restricted, ~5%, CD19+, CD20+ with no CD5 or CD10 co-expression. T-cells: not increased Blasts: not increased Plasma cells: no significant population detected A bone marrow aspirate smear prepared from the flow cytometry specimen has been reviewed for dairy quality assurance officer purposes. 07/07/2023 3:41 PM [facility] Flow Cytometry Results Differential Result Comment Flow Cell Count /uL 6,800 Total Viability % 71.0 Lymphocytes % 29 Dim CD45 Region % 2 Monocytes % 9 Granulocytes % 58 07/07/2023 3:41 PM [facility] Reason for test Waldenstrom macroglobulinemia (HCC) 273.3 07/07/2023 3:41 PM [facility] Client Specimen ID # [id number] 07/07/2023 3:41 PM [facility] Number of markers 14 were performed. A-2 Flow CD10 A-3 Flow CD13 A-5 Flow CD20 A-13 Flow CD117 A-14 FLOW CD138 A-1 Flow CD5 A-4 Flow CD19 A-6 Flow CD33 A-7 Flow CD34 A-8 Flow CD45 A-11 Flow CD38 A-12 Flow CD56 A-9 [place]+CD19+ A-10 Lambda+CD19+ 07/07/2023 3:41 PM [facility] Pathologist Location at [facility] 07/07/2023 3:41 PM [facility] Disclaimer Test performed at [facility], [address] [place] [address], [id number]. *The established laboratory minimum viability is 70%. Values below the minimum may result in the failure to find an abnormal population of cells. This test was developed and its performance characteristics determined by the Flow Cytometry Laboratory. It has not been cleared by the [place] Food and Drug Administration (FDA). The FDA has determined that such clearance or approval is not necessary. This test is used for clinical purposes. It should not be regarded as investigational or for research. This laboratory is regulated under the Clinical Laboratory Improvement Amendments of 1998 (CLIA) as a qualified to perform high complexity clinical testing. 07/07/2023 3:41 PM [facility] Embedded Images 3:41 PM [facility] Pathology/Cytolo gy BONE MARROW SPECIMEN / Unknown 07/07/2023 10:40 AM CDT 07/07/2023 12:52 PM CDT Miguel Reyna MD LAB - PATHO LOGY/CYTOLOGY ORDERABLES Performing Organization Address City/State/[facility] Co de Phone Number [facility] [address] [facility]. [address] [phone] documented in this encounter Visit Diagnoses Diagnosis Waldenstrom macroglobulinemia Macroglobulinemia documented in this encounter
--- OUTSIDE RECORDS SUMMARY | 2024-04-07 12:38 | XMS_ITS | Referral Summary ---
Author Organization [facility] Address [address] [place] [address] Care Team Providers Care Edge Beader Name Role Phone Unavailable Primary Care Provider Unavailabl e Source Comments [facility],non-owned Affiliates and Associated Physician Practices is amultiple site organization consisting of ambulatory clinics and hospital sitesin [place], [place], [place] and [place]. This disclosure is being madepursuant to the Care Everywhere program and may not contain all information available regarding this patient. Last updated 17.[facility] [employer] Social History Tobacco Use Types Packs/Day Years Used Date Smoking Tobacco: Never Assessed Sex and Gender Information Value Date Recorded Sex Assigned at Not on file Gender Identity Not on file Sexual Orientation Not on file Plan of Treatment Not on file
--- OUTSIDE RECORDS SUMMARY | 2024-04-07 12:38 | XMS_ITS | Patient Health Summary ---
Author Organization [facility] Address [address] [place] [address] Care Team Providers Care Library Technical Assistant Name Role Phone Unavailable Primary Care Provider Unavailabl e Note from [facility],non-owned Affiliates and Associated Physician Practices is amultiple site organization consisting of ambulatory clinics and hospital sitesin [place], [place], [place] and [place]. This disclosure is being madepursuant to the Care Everywhere program and may not contain all information available regarding this patient. Last updated 17.[facility] Social History Tobacco Use Types Packs/Day Years Used Date Smoking Tobacco: Never Assessed Sex and Gender Information Value Date Recorded Sex Assigned at Not on file Gender Identity Not on file Sexual Orientation Not on file Procedures * FLOW CYTOMETRY BONE MARROW(Performed 07/07/2023) Performed for Waldenstrom macroglobulinemia (HCC) * BONE MARROW BIOPSY (STL)(Performed 07/07/2023) Performed for Illness, unspecified Results * FLOW CYTOMETRY BONE MARROW (07/07/2023 10:40 AM CDT) Case Report Flow Cytometry ?Case: [id number] ? Authorizing Provider: ??Miguel Reyna ? Collected: ? 07/07/2023 10:40 AM ? MD John ? Ordering Location: ? [facility] - ??Received: ?07/07/2023 12:52 PM ? Pathology Lab ? Pathologist: ? Gabi David MD ? Specimen: ?Bone Marrow ? 07/07/2023 3:41 PM CDT [facility] Final Diagnosis Bone marrow, flow cytometry: - Apparent clonal B-cell population detected (~5% of overall cellularity) 07/07/2023 3:[address] [facility] Flow Cytometry Interpretation Viability: 71% B-cells: monoclonal, kappa-restricted, ~5%, CD19+, CD20+ with no CD5 or CD10 co-expression. T-cells: not increased Blasts: not increased Plasma cells: no significant population detected A bone marrow aspirate smear prepared from the flow cytometry specimen has been reviewed for business quality assurance analyst purposes. 07/07/2023 3:41 PM CDT [facility] Flow Cytometry Results Differential Result Comment Flow Cell Count /uL 6,800 Total Viability % 71.0 Lymphocytes % 29 Dim CD45 Region % 2 Monocytes % 9 Granulocytes % 58 07/07/2023 3:41 PM T [facility] Reason for test Waldenstrom macroglobulinemia (HCC) 273.3 07/07/2023 3:41 PM T [facility] Client Specimen ID # [id number] 07/07/2023 3:[address] [facility] Number of markers 14 were performed. A-2 Flow CD10 A-3 Flow CD13 A-5 Flow CD20 A-13 Flow CD117 A-14 FLOW CD138 A-1 Flow CD5 A-4 Flow CD19 A-6 Flow CD33 A-7 Flow CD34 A-8 Flow CD45 A-11 Flow CD38 A-12 Flow CD56 A-9 Doyle+CD19+ A-10 Lambda+CD19+ 07/07/2023 3:[address] [facility] Pathologist Location at [facility] 07/07/2023 3:[address] [facility] Disclaimer Test performed at [facility], [address] [place] [address], [address]. *The established laboratory minimum viability is 70%. [...] high complexity clinical testing. 07/07/2023 3:41 PM T [facility] Embedded Images 3:41 PM T [facility] Pathology/Cytolo gy BONE MARROW SPECIMEN / Unknown 07/07/2023 10:40 AM CDT 07/07/2023 12:52 PM CDT Miguel Reyna MD LAB - PATHO LOGY/CYTOLOGY ORDERABLES [facility] [address] [place] [address], [facility] [phone] * BONE MARROW BIOPSY (STL) (07/07/2023 9:40 AM CDT) Case Report Bone Marrow Patholog y Report ?Case: [id number] ? Authorizing Provider: ??Miguel Reyna ? Collected: ? 07/07/2023 09:40 AM ? MD John ? Ordering Location: ? [facility] - ??Received: ?07/08/2023 01:53 PM ? Pathology Lab ? Pathologist: ? Gabi David MD ? Specimens: ?? A) - Bone Marrow Clot ? B) - Bone Marrow Core ? 07/09/2023 9:[address] 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 - See description. 07/09/2023 9:[address] [facility] Comment Immunohistochemistry is performed to assess staining cells in an architectural context: CD20 highlights ~30% of marrow cellularity as B-cells. CD138 highlights ~15% pf marrow cellularity as plasma cells. PAX-5 and Cd79a highlight ~40% of marrow cellularity as B-cells and plasma cells. In situ hybridization (MARY) for kappa and lambda mRNA on the clot section is not interpretable due to staining artifact. MARY for kappa mRNA on the core is not interpretable due to staining artifact. 07/09/2023 9:[address] [facility] Peripheral Smear Description Not submitted. 07/09/2023 9:[address] [facility] Bone Marrow Aspirate Differential count (200 cells): 1% blasts, 43% maturing myeloid precursors, 9% erythroid progenitors, 2% monocytes, 3% eosinophils, 31% lymphocytes, 11% plasma cells. Specimen quality: many crushed cells. Spicules: present. Trilineage Hematopoiesis: present. Myeloid:Erythroid ratio: decreased. Myeloid Maturation: normal. Erythroid Maturation: normal. Megakaryocyte morphology: normal size. Storage iron (by special stain): adequate. Sideroblastic iron (by special stain): no ring sideroblasts. 07/09/2023 9:[address] [facility] Bone Marrow Core Biopsy and Clot Section Description Specimen quality: adequate with 1.4 cm of evaluable marrow. Cellularity: 60% Trilineage Hematopoiesis: present. Myeloid to Erythroid ratio: decreased. Myeloid maturation and localization: normal. Erythroid maturation and localization: normal. Megakaryocyte number: normal. Megakaryocyte distribution: normal. Lymphoid aggregates: numerous. Bone trabeculae: thin. Plasma cells: interstitially increased. Clot section marrow particles: few. Clot section morphology: similar to core biopsy. 07/09/2023 9:[address] [facility] Flow Cytometry Summary Bone marrow, flow cytometry ([id number]): - Apparent clonal B-cell population detected (~5% of overall cellularity) 07/09/2023 9:[address] [facility] Clinical History Lymphoplasmacytic lymphoma diagnosed in 2019. 07/09/2023 9:[address] [facility] Microscopic Description Received are 26 slide(s) and 4 blocks labeled [id number] along with a copy of the outside pathology report. [place] [address] . All original materials are returned to the referring institution, along with a copy of our final report. 07/09/2023 9:[address] [facility] Pathologist Location at [facility] 07/09/2023 9:[address] [facility] Disclaimer The performance characteristics of all immunohistochemical and indirect immunofluorescence stains (if any) cited in this report were determined by the Histopathology Laboratory of [facility]. Some of these tests were developed by our own laboratory and have not been cleared or approved by the US Food and Drug Administration. The FDA does not require this test to go through premarket FDA review. These tests are used for clinical purposes. They should not be regarded as investigational or for research. This laboratory is certified under the Clinical Laboratory Improvement Amendments (CLIA) as qualified to perform high complexity clinical laboratory testing. This case has been personally reviewed and interpreted by the attending (teaching) pathologist. 07/09/2023 9:[address] [facility] Embedded Images 07/09/2023 9:[address] [facility] Pathology/Cytology BONE MARROW SPECIMEN / Unknown 07/07/2023 9:40 AM CDT 07/08/2023 1:53 PM CDT Miscellaneous samples (specimen) BONE MARROW SPECIMEN / Unknown 07/07/2023 9:40 AM CDT 07/08/2023 1:53 PM CDT Miguel Reyna MD LAB - PATHO LOGY/CYTOLOGY ORDERABLES Performing Organization Address City/State/[facility] Co de Phone Number [facility] [address] [phone]
--- OUTSIDE RECORDS SUMMARY | 2024-04-07 12:38 | XMS_ITS | Encounter Summary ---
Author Organization [facility] Address [address] [place] [address] Care Team Providers Care Windows System Admin Name Role Phone Unavailable Primary Care Provider Unavailabl e Encounter Details Date Type Department Care Team (Late st Contact Info) Description 07/08/2023 Lab Requisition [facility] - Pathology Lab [address] [place] [phone] Miguel Reyna MD [address] [place] [address] Illness, unspecified Social History Tobacco Use Types Packs/Day Years Used Date Smoking Tobacco: Never Assessed Sex and Gender Information Value Date Recorded Sex Assigned at Not on file Gender Identity Not on file Sexual Orientation Not on file documented as of this encounter Plan of Treatment Not on file documented as of this encounter Procedures Procedure Name Priority Date/Time Associated Diagnosis Comments BONE MARROW BIOPSY (STL) Routine 07/07/2023 9:40 AM CDT Illness, unspecified documented in this encounter Results * BONE MARROW BIOPSY (STL) (07/07/2023 9:40 AM CDT) Case Report Bone Marrow Patholog y Report ?Case: [id number] ? Authorizing Provider: ??Miguel Reyna ? Collected: ? 07/07/2023 09:40 AM ? MD John ? Ordering Location: ? [facility] - ??Received: ?07/08/2023 01:53 PM ? Pathology Lab ? Pathologist: ? Gabi David MD ? Specimens: ?? A) - Bone Marrow Clot ? B) - Bone Marrow Core ? 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 - See description. 07/09/2023 9:24 AM [facility] Comment Immunohistochemistry is performed [...] due to staining artifact. 07/09/2023 9:24 AM [facility] Peripheral Smear Description Not submitted. 07/09/2023 9:24 AM [facility] Bone Marrow Aspirate Differential [...] stain): no ring sideroblasts. 07/09/2023 9:24 AM [facility] Bone Marrow Core Biopsy [...] similar to core biopsy. 07/09/2023 9:24 AM [facility] Flow Cytometry Summary Bone marrow, flow cytometry ([id number]): - Apparent clonal B-cell population detected (~5% of overall cellularity) 07/09/2023 9:24 AM [facility] Clinical History Lymphoplasmacytic lymphoma diagnosed in 2019. 07/09/2023 9:24 AM [facility] Microscopic Description Received are 26 slide(s) and 4 blocks labeled [id number] along with a copy of the outside pathology report. [place] [address] . All original materials are returned to the referring institution, along with a copy of our final report. 07/09/2023 9:24 AM T [facility] Pathologist Location at [facility] 07/09/2023 9:24 AM T [facility] Disclaimer The performance characteristics of all immunohistochemical and indirect immunofluorescence stains (if any) cited in this report were determined by the Histopathology Laboratory of [facility]. Some of these tests were developed by [...] the attending (teaching) pathologist. 07/09/2023 9:24 AM T [facility] Embedded Images 07/09/2023 9:24 AM T [facility] Pathology/Cytology BONE MARROW SPECIMEN / Unknown 07/07/2023 9:40 AM CDT 07/08/2023 1:53 PM CDT Miscellaneous samples (specimen) BONE MARROW SPECIMEN / Unknown 07/07/2023 9:40 AM CDT 07/08/2023 1:53 PM CDT Miguel Reyna MD LAB - PATHO LOGY/CYTOLOGY ORDERABLES [facility] [address] [facility] [phone] documented in this encounter Visit Diagnoses Diagnosis Illness, unspecified documented in this encounter
--- OUTSIDE RECORDS SUMMARY | 2024-04-07 12:38 | XMS_ITS | Clinical Summary ---
Author Organization [facility] Address [address] [place] [address] Care Team Providers Care Classifying Machine Operator Name Role Phone Unavailable Primary Care Provider Unavailabl e Source Comments [facility] [employer],non-owned Affiliates and Associated Physician Practices is amultiple site organization consisting of ambulatory clinics and hospital sitesin [place], [place], [place] and [place]. This disclosure is being madepursuant to the Care Everywhere program and may not contain all information available regarding this patient. Last updated 17.[facility] [employer] Social History Tobacco Use Types Packs/Day Years Used Date Smoking Tobacco: Never Assessed Sex and Gender Information Value Date Recorded Sex Assigned at Not on file Gender Identity Not on file Sexual Orientation Not on file Plan of Treatment Health Maintenance Due Date Last Done Comments BONE DENSITY TESTING 1940 MEDICARE AWV ? 12 MONTHS 1940 DTAP/TDAP/TD VACCINES (1 - Tdap) 1960 PNEUMOCOCCAL VACCINE 50+ (1 of 1 - PCV) 09/25/1991 ZOSTER VACCINE (1 of 2) 09/25/1991 Respiratory Syncytial Virus (RSV) Vaccine Pt: or over 60 yrs (1 - 1-dose 75+ series) 2016 COVID-19 VACCINE ( - 2023-2 5 season) 2023 INFLUENZA VACCINE (#1) 2023 DEPRESSION SCREENING 03/16/2024 HEPATITIS B VACCINE Aged Out No longe r eligible based on patient's age to complete this topic HIB VACCINE Aged Out No longer eligi ble based on patient's age to complete this topic HPV VACCINE Aged Out No longer eligi ble based on patient's age to complete this topic MENINGOCOCCAL (Group B) VACCINE Aged Out No longer eligible based on patient's age to complete this topic MENINGOCOCCAL VACCINE Aged Out No faustino isaiah eligible based on patient's age to complete this topic
== END 2024-04-04 10:01 | disposition home or self-care (01) ==
LOC: ANHLAB 10:01
PROVIDERS: PCP Family Medicine; Visit Provider Internal Medicine Hematology & Oncology
DX: C88.00 Waldenstrom macroglobulinemia not having achieved remission (principal)
CPT/HCPCS: 36415; 80053; 82784; 83883; 84155; 84165; 85025

== ENCOUNTER 2024-05-10 11:08 | Outpatient (CLI) | payer OTHER, SELFPAY ==
--- NOTE | ~2024-05-10 | XR_ITS ---
EXAMINATION: XR knee RT 3V DATE: 05/10/2024 11:28 INDICATION: Right knee pain. TECHNIQUE: 4 views of right knee were obtained. COMPARISON: Right knee radiographs 09/30/2023 FINDINGS: Alignment is normal. No fracture. There is moderate osteoarthritis of medial compartment an d mild osteoarthritis of patellofemoral compartment. No knee joint effusion. IMPRESSION: 1. Moderate right knee osteoarthritis. Reviewed, dictated and finalized at location A. ORK APPLICATIONS SPECIALIST
== END 2024-05-10 11:09 | disposition home or self-care (01) ==
LOC: MICIMG 11:09
PROVIDERS: PCP Family Medicine; Visit Provider Nurse Practitioner Family
DX: M17.11 Unilateral primary osteoarthritis, right knee (principal)
CPT/HCPCS: 73562

== ENCOUNTER 2024-05-12 14:09 | Outpatient (CLI) | payer OTHER, SELFPAY ==
[2024-05-12 17:33] LABS: Albumin Level 4.3 g/dL (3.5-5.1); Anion Gap 8 mmol/L (4-12); Blood Urea Nitrogen 16 mg/dL (7-17); Carbon Dioxide 28 mmol/L (22-30); Chloride 102 mmol/L (98-107); Estimated Glomerular Filt Rate > 60; Glucose 91 mg/dL (65-110); Phosphorus 3.8 mg/dL (2.5-4.5); Potassium 3.8 mmol/L (3.4-5.0); Sodium 138 mmol/L (137-145)
[2024-05-12 18:18] LABS: Parathyroid Intact 39.9 pg/mL (14.5-75.2)
[2024-05-12 18:24] LABS: Vitamin D 25 Hydroxy 41.4 ng/mL
[2024-05-17 00:58] LABS: Parathyroid Hormone Related Pr 9 pg/mL (11-20)
== END 2024-05-12 14:10 | disposition home or self-care (01) ==
LOC: ANHLAB 14:12
PROVIDERS: PCP Internal Medicine Endocrinology, Diabetes & Metabolism; Visit Provider Internal Medicine Endocrinology, Diabetes & Metabolism
DX: R79.89 Other specified abnormal findings of blood chemistry (principal); E79.89 Other specified disorders of purine and pyrimidine metabolism; M85.80 Other specified disorders of bone density and structure, unspecified site; Z78.0 Asymptomatic menopausal state; S22.080S Wedge compression fracture of T11-T12 vertebra, sequela; X58.XXXS Exposure to other specified factors, sequela; E83.52 Hypercalcemia; Z91.89 Other specified personal risk factors, not elsewhere classified
CPT/HCPCS: 36415; 80069; 82306; 82330; 82652; 83519; 83970

== ENCOUNTER 2024-07-06 11:12 | Outpatient (CLI) | payer OTHER, SELFPAY ==
[2024-07-06 11:26] LABS: Basophils Absolute Auto 0.1 K/mm3 (0.0-0.1); Basophils Percent Auto 1.3 % (0.2-1.2); Eosinophils Absolute Auto 0.1 K/mm3 (0-0.3); Eosinophils Percent Auto 1.6 % (0-4.4); Hematocrit 42.8 % (37.0-47.0); Hemoglobin 14.1 g/dL (12.0-15.0); Immature Granulocyte Absolute 0.03 K/mm3 (0.00-0.031); Immature Granulocyte Percent A 0.4 % (0-0.5); Lymphocytes Absolute Auto 1.69 K/mm3 (0.9-3.2); Lymphocytes Percent Auto 24.4 % (18.3-44.2); Mean Corpuscular HGB Conc 32.9 g/dl (32-36); Mean Corpuscular Hemoglobin 31.5 pg (26-34); Mean Corpuscular Volume 95.7 fl (80-100); Mean Platelet Volume 10.2 fl (7.4-10.4); Monocytes Absolute Auto 0.8 K/mm3 (0.1-0.6); Monocytes Percent Auto 11.5 % (2.6-8.5); Neutrophils Absolute Auto 4.2 K/mm3 (1.3-6.7); Neutrophils Percent Auto 60.8 % (45.5-73.1); Platelet Count Result 299 k/mm3 (150-375); Red Blood Count 4.47 M/mm3 (4.2-5.4); Red Cell Distribution Width 12.9 % (11.5-14.5); White Blood Count 6.9 K/mm3 (4.5-10.0)
[2024-07-06 12:35] LABS: Alanine Aminotransferase 31 U/L (6-35); Albumin Level 4.4 g/dL (3.5-5.1); Alkaline Phosphatase 51 U/L (38-126); Anion Gap 9 mmol/L (4-12); Aspartate Amino Transferase 39 U/L (14-36); Bilirubin,Total 0.7 mg/dL (0.2-1.3); Blood Urea Nitrogen 19 mg/dL (7-17); Calcium 9.1 mg/dL (8.4-10.2); Carbon Dioxide 28 mmol/L (22-30); Chloride 103 mmol/L (98-107); Estimated Glomerular Filt Rate > 60; Glucose 87 mg/dL (65-110); Potassium 4.2 mmol/L (3.4-5.0); Sodium 140 mmol/L (137-145)
--- OUTSIDE RECORDS SUMMARY | 2024-07-06 13:08 | XMS_ITS | Clinical Summary ---
Author Organization [facility] Johanna medrano Jeannette Address [address] [place] [address] Care Team Providers Care Retail Loan Originator Name Role Phone Kimberly Turner MD Primary Care Provider [phone] Allergies Active Allergy Reactions Criticality Noted Date Comments Aspirin Rash Low 01/02/2023 Iodinated Contrast Media Rash Low 01/02/2023 Nsaids (Non-Steroidal Anti-I nflammatory Drug) Anxiety Low 10/26/2023 Penicillins Rash Low 01/02/2023 Medications CALCIUM CARBONATE-VITAM IN D3 ORAL Take by mouth. Acti ve acetaminophen (TYLENOL ARTHRITIS) 650 mg Extended Release [...] daily. 120 Capsule 3 03/22/19 25 Active predniSONE (DELTASONE) 10 mg tablet Take 10 mg by mouth see administration instructions. 04/04/19 25 Active Active Problems No known active problems Encounters Date Type Department Care Team Description 06/17/2024 Abstract [facility] - [place] [address] [place] [address] Luis Eduardo Dumont MD 05/20/2024 Abstract [facility] - [place] [address] [place] [address] Luis Eduardo Dumont MD 05/04/2024 External Device Data STL ABSTRACTION Provider, Abstract 04/18/2024 Telephone [facility] - [place] [address] [place] [address] Luis Eduardo Dumont MD appointment reminder 04/13/2024 External Device Data STL ABSTRACTION Provider, Abstract 04/12/2024 Orders Only [facility] - [place] [address] [place] [address] Luis Eduardo Dumont MD 04/08/2024 12:00 PM SEASONING SPRAYER Office Visit [facility] - [place] [address] [place] [address] Luis Eduardo Dumont MD Macroglobulinemia of Waldenstrom (Primary Dx) 04/07/2024 External Device Data STL ABSTRACTION Provider, Abstract from Last 3 Months Family History Medical [...] 1 962 - 2000 Smokeless Tobacco: Never Alcohol Use Standard Drinks/Week Comments Never 0 (1 standard drink = 0.6 oz pur e alcohol) Comments Unknown Sex and Gender Information Value Date Recorded Sex Assigned at Not on file Legal Sex Female 12:11 PM CDT Gender Identity Not on file Sexual Orientation Not on file Last Filed Vital Signs Vital Sign Reading Time Taken Comments Blood Pressure 113/62 04/08/2024 11:51 AM SEASONING SPRAYER Pulse 62 04/08/2024 11:51 AM SEASONING SPRAYER Temperature 36.4 C (97.5 F) 04/08/2024 11:51 AM SEASONING SPRAYER Respiratory Rate 16 04/08/2024 11:51 AM SEASONING SPRAYER Oxygen Saturation 98% 04/08/2024 11:51 AM SEASONING SPRAYER Inhaled Oxygen Concentration - - Weight 65.1 kg (143 lb 9.6 oz) 04/08/2024 11:51 AM SEASONING SPRAYER Height 157.5 cm (5' 2 ) 01/02/2023 2:08 PM CDT Body Mass Index 26.26 01/02/2023 2:08 PM CDT Plan of Treatment Upcoming Encounters Date Type Department Care Team (Late st Contact Info) Description 07/15/2024 12:00 PM CDT Office Visit [facility] - [place] [address] [place] [address] Luis Eduardo Dumont MD [address] [facility] [address] [place] [address] Health Maintenance Due Date Last Done Comments DTAP/TDAP/TD VACCINES (1 - Tdap) 1960 PNEUMOCOCCAL VACCINE 50+ YEA RS (1 of 1 - PCV) 09/25/1991 ZOSTER VACCINE (1 of 2) 09/25/1991 OSTEOPOROSIS SCREENING 2006 RSV VACCINE (60+ or ) (1 - 1-dose 75+ series) 2016 INFLUENZA VACCINE (#1) 2023 01/01/2022, 2020 [place] Prev entative Visit/Annual Wellness Visit 03/16/2024 Insurance [employer] PPO MCR RX MEDIMPACT Member Subscriber Plan / Payer (Ef fective 2023-Present) Name:Alyssa Davis Relation to Subscriber:Self Name:Alyssa Davis Payer ID:Not on file Group ID:[id number] Type:RX Medicare Part D Address: [place] [facility] [employer] Medicare Part D RX [employer] Medicare Part D Care Teams Retail Loan Originator Relationship Specialty Start Date End Date Kimberly Turner MD [address] [place] [phone] PCP - General Family Practice 01/02/23
--- OUTSIDE RECORDS SUMMARY | 2024-07-06 13:08 | XMS_ITS | Encounter Summary ---
Author Organization [facility] Address [address] [place] [address] Care Team Providers Care Welfare Officer Name Role Phone Unavailable Primary Care Provider Unavailabl e Encounter Details Date Type Department Care Team (Latest Contact Info) Description 07/07/2023 Lab Requisition [facility] - Pathology Lab [address] [place] [phone] Miguel Reyna MD [address] [address] Waldenstrom macroglobulinemia (HCC) Social History Tobacco Use Types Packs/Day Years Used Date Smoking Tobacco: Never Assessed Comments Unknown Sex and Gender Information Value Date Recorded Sex Assigned at Not on file Legal Sex Female 12:49 PM CDT Gender Identity Not on file [...] 10:40 AM CDT) Case Report Flow Cytometry Case: [id number] Authorizing Provider: Miguel Reyna Collected: 07/07/2023 10:40 AM MD John Ordering Location: [facility] - Received: 07/07/2023 12:52 PM Pathology Lab Pathologist: Gabi David MD Specimen: Bone Marrow 07/07/2023 3:41 PM CDT [facility] Final Diagnosis Bone marrow, flow cytometry: - Apparent clonal B-cell population detected (~5% of overall cellularity) 07/07/2023 3:41 PM [facility] Flow Cytometry Interpretation Viability: 71% B-cells: monoclonal, kappa-restricted, ~5%, CD19+, CD20+ with no CD5 or CD10 co-expression. T-cells: not increased Blasts: not increased Plasma cells: no significant population detected A bone marrow aspirate smear prepared from the flow cytometry specimen has been reviewed for fuel quality tech purposes. 07/07/2023 3:41 PM [facility] Flow Cytometry Results Differential Result Comment Flow Cell Count /uL 6,800 Total Viability % 71.0 Lymphocytes % 29 Dim CD45 Region % 2 Monocytes % 9 Granulocytes % 58 07/07/2023 3:41 PM [facility] Reason for test Waldenstrom macroglobulinemia (HCC) 273.3 07/07/2023 3:41 PM [facility] Client Specimen ID # [id number] 07/07/2023 3:41 PM [facility] Number of markers 14 were performed. A-2 Flow CD10 A-3 Flow CD13 A-5 Flow CD20 A-13 Flow CD117 A-14 FLOW CD138 A-1 Flow CD5 A-4 Flow CD19 A-6 Flow CD33 A-7 Flow CD34 A-8 Flow CD45 A-11 Flow CD38 A-12 Flow CD56 A-9 [place]+CD19+ A-10 Lambda+CD19+ 07/07/2023 3:41 PM [facility] Pathologist Location at [facility] 07/07/2023 3:41 PM [facility] Disclaimer Test performed at [facility], [address] [place] [address], [address]. *The established laboratory minimum viability is 70%. [...] high complexity clinical testing. 07/07/2023 3:41 PM CDT [facility] Embedded Images 3:41 PM CDT [facility] Pathology/Cytolo gy BONE MARROW SPECIMEN / Unknown 07/07/2023 10:40 AM CDT 07/07/2023 12:52 PM CDT Miguel Reyna MD LAB - PATHOLOGY/CYT OLOGY ORDERABLES Final Result [facility] [address] [facility] [address], [facility] [phone] documented in this encounter Visit Diagnoses Diagnosis Waldenstrom macroglobulinemia Macroglobulinemia documented in this encounter
--- OUTSIDE RECORDS SUMMARY | 2024-07-06 13:08 | XMS_ITS | Clinical Summary ---
Author Organization [facility] Address [address] [place] [address] Care Team Providers Care Data Operations Manager Name Role Phone Unavailable Primary Care Provider Unavailabl e Source Comments [facility],non-owned Affiliates and Associated Physician Practices is amultiple site organization consisting of ambulatory clinics and hospital sitesin [place], [place], [place] and [place]. This disclosure is being madepursuant to the Care Everywhere program and may not contain all information available regarding this patient. Last updated 17.[facility] Social History Tobacco Use Types Packs/Day Years Used Date Smoking Tobacco: Never Assessed Comments Unknown Sex and Gender Information Value Date Recorded Sex Assigned at Not on file Legal Sex Female 12:49 PM CDT Gender Identity Not on file Sexual Orientation Not on file Plan of Treatment Health Maintenance Due Date Last Done Comments BONE DENSITY TESTING 1940 MEDICARE AWV 12 MONTHS 1940 DTAP/TDAP/TD VACCINES (1 - Tdap) 1960 PNEUMOCOCCAL VACCINE 50+ (1 of 1 - PCV) 09/25/1991 ZOSTER VACCINE (1 of 2) 09/25/1991 Respiratory Syncytial Virus (RSV) Vaccine Pt: or over 60 yrs (1 - 1-dose 75+ series) 2016 COVID-19 VACCINE ( - 2023-2 5 season) 2023 DEPRESSION SCREENING 03/16/2024 INFLUENZA VACCINE (Season Ended) 2024 HEPATITIS B VACCINE Aged Out No longe r eligible based on patient's age to complete this topic HIB VACCINE Aged Out No longer eligi ble based on patient's age to complete this topic HPV VACCINE Aged Out No longer eligi ble based on patient's age to complete this topic MENINGOCOCCAL (Group B) VACC INE SHARED DECISION-MAKING Aged Out No longer eligibl e based on patient's age to complete this topic MENINGOCOCCAL GROUPS A/C/Y/W VACCINE Aged Out No longer eligible b ased on patient's age to complete this topic Insurance [employer] ADV PPO
--- OUTSIDE RECORDS SUMMARY | 2024-07-06 13:08 | XMS_ITS | Encounter Summary ---
Author Organization [facility] Address [address] [address] Care Team Providers Care Credit Collections Manager Name Role Phone Unavailable Primary Care Provider Unavailabl e Encounter Details Date Type Department Care Team (Late st Contact Info) Description 07/08/2023 Lab Requisition [facility] - Pathology Lab [address] [place] [phone] Miguel Reyna MD [address] [address] Illness, unspecified Social History Tobacco Use [...] Case Report Bone Marrow Patholog y Report Case: [id number] Authorizing Provider: Miguel Reyna Collected: 07/07/2023 09:40 AM MD John Ordering Location: [facility] - Received: 07/08/2023 01:53 PM Pathology Lab Pathologist: Gabi David MD Specimens: A) - Bone Marrow Clot B) - Bone Marrow Core 07/09/2023 9:24 AM CDT U PATHOLOGY LAB Final Diagnosis Bone marrow, aspirate, clot section, and core biopsy: - Hypercellular marrow for age with maturing trilineage hematopoiesis and 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 - See description. 07/09/2023 9:24 AM [facility] PATHOLOGY LAB Comment Immunohistochemistry is performed [...] is not interpretable due to staining artifact. AMRY for kappa mRNA on the core is not interpretable due to staining artifact. 07/09/2023 9:24 AM [facility] PATHOLOG[facility] LAB Peripheral Smear Description Not submitted. 07/09/2023 9:24 AM [facility] PATHOLOG[facility] LAB Bone Marrow Aspirate Differential [...] stain): no ring sideroblasts. 07/09/2023 9:24 AM [facility] PATHOLOG[facility] LAB Bone Marrow Core Biopsy [...] similar to core biopsy. 07/09/2023 9:24 AM [facility] PATHOLOG[facility] LAB Flow Cytometry Summary Bone marrow, flow cytometry ([id number]): - Apparent clonal B-cell population detected (~5% of overall cellularity) 07/09/2023 9:24 AM T [facility] PATHOLOGY LAB Clinical History Lymphoplasmacytic lymphoma diagnosed in 2019. 07/09/2023 9:24 AM T [facility] PATHOLOGY LAB Microscopic Description Received are 26 slide(s) and 4 blocks labeled [id number] along with a copy of the outside pathology report. The [place] [address] . All original materials are returned to the referring institution, along with a copy of our final report. 07/09/2023 9:24 AM [facility] Pathologist Location at [facility] 07/09/2023 9:24 AM [facility] PATHOLOG[facility] Disclaimer The performance characteristics of all immunohistochemical and indirect immunofluorescence stains (if any) cited in this report were determined by the Histopathology Laboratory of [facility]. Some of these tests were developed by [...] the attending (teaching) pathologist. 07/09/2023 9:24 AM [facility] PATHOLOG[facility] LAB Embedded Images 07/09/2023 9:24 AM T [facility] PATHOLOGY LAB Pathology/Cytology BONE MARROW SPECIMEN / Unknown 07/07/2023 9:40 AM CDT 07/08/2023 1:53 PM CDT Miscellaneous samples (specimen) BONE MARROW SPECIMEN / Unknown 07/07/2023 9:40 AM CDT 07/08/2023 1:53 PM CDT us Miguel Reyna MD LAB - PATHOLOGY/CYT OLOGY ORDERABLES Final Result [facility] PATHOLOGY LAB [address] [place] [address], [facility] [phone] documented in this encounter Visit Diagnoses Diagnosis Illness, unspecified documented in this encounter
[2024-07-06 19:37] LABS: Immunoglobulin A < 40 mg/dL (70-400); Immunoglobulin G < 270 mg/dL (700-1600); Immunoglobulin M 1163 mg/dL (40-230)
[2024-07-07 17:24] LABS: Protein, Total 6.4 g/dL (6.1-8.1)
[2024-07-08 11:19] LABS: Kappa\\Lambda Light Chains 2.39 (0.26-1.65); Lambda Light Chain 4.4 mg/L (5.7-26.3)
[2024-07-09 08:08] LABS: Abnormal Protein Band 1 0.8 g/dL (NONE DETECTED); Albumin 3.8 g/dL (3.8-4.8); Alpha 1 Globulin 0.3 g/dL (0.2-0.3); Alpha 2 Globulin 0.7 g/dL (0.5-0.9); Beta 1 Globulin 0.4 g/dL (0.4-0.6); Gamma Globulin 0.9 g/dL (0.8-1.7)
== END 2024-07-06 11:13 | disposition home or self-care (01) ==
LOC: ANHLAB 11:13
PROVIDERS: PCP Family Medicine; Visit Provider Internal Medicine Hematology & Oncology
DX: C80.0 Disseminated malignant neoplasm, unspecified (principal)
CPT/HCPCS: 36415; 80053; 82784; 83883; 84155; 84165; 85025

== ENCOUNTER 2024-10-17 12:47 | Outpatient (CLI) | payer OTHER, SELFPAY ==
--- OUTSIDE RECORDS SUMMARY | 2024-10-17 12:51 | XMS_ITS | Clinical Summary ---
Author Organization [facility] Address [address] [place] [address] Care Team Providers Care Insurance Adviser Name Role Phone Unavailable Primary Care Provider Unavailabl e Source Comments [facility],non-owned Affiliates and Associated Physician Practices is amultiple site organization consisting of ambulatory clinics and hospital sitesin [place], [place], [place] and [place]. This disclosure is being madepursuant to the Care Everywhere program and may not contain all information available regarding this patient. Last updated 17.[facility] Social History Tobacco Use Types Packs/Day Years [...] season) 2023 DEPRESSION SCREENING 03/16/2024 INFLUENZA VACCINE (#1) 2024 HEPATITIS B VACCINE Aged Out No [...]
--- OUTSIDE RECORDS SUMMARY | 2024-10-17 12:51 | XMS_ITS | Encounter Summary ---
Author Organization [facility] Address [address] [place] [address] Care Team Providers Care Design Assembler Name Role Phone Unavailable Primary Care Provider Unavailabl e Encounter Details Date Type Department Care Team (Latest Contact Info) Description 07/07/2023 Lab Requisition [facility] - Pathology Lab [address] [place] [phone] Miguel Reyna MD [address] [address] Waldenstrom macroglobulinemia (HCC) Social History [...] AM CDT) Case Report Flow Cytometry Case: [id number] Authorizing Provider: Miguel Reyna Collected: 07/07/2023 10:40 AM MD John Ordering Location: [facility] - Received: 07/07/2023 12:52 PM Pathology Lab Pathologist: Gabi David MD Specimen: Bone Marrow 07/07/2023 3:41 PM CDT U PATHOLOGY LAB Final Diagnosis Bone marrow, flow cytometry: - Apparent clonal B-cell population detected (~5% of overall cellularity) 07/07/2023 3:41 PM [facility] PATHOLOGY LAB at 1541 CDT Flow Cytometry Interpretation Viability: 71% B-cells: monoclonal, kappa-restricted, ~5%, CD19+, CD20+ with no CD5 or CD10 co-expression. T-cells: not increased Blasts: not increased Plasma cells: no significant population detected A bone marrow aspirate smear prepared from the flow cytometry specimen has been reviewed for director quality systems purposes. 07/07/2023 3:41 PM [facility] PATHOLOGY LAB Flow Cytometry Results Differential Result Comment Flow Cell Count /uL 6,800 Total Viability % 71.0 Lymphocytes % 29 Dim CD45 Region % 2 Monocytes % 9 Granulocytes % 58 07/07/2023 3:41 PM [facility] PATHOLOGY LAB Reason for test Waldenstrom macroglobulinemia (HCC) 273.3 07/07/2023 3:41 PM [facility] PATHOLOG[facility] LAB Client Specimen ID # [id number] 07/07/2023 3:41 PM [facility] PATHOLOG[facility] LAB Number of markers 14 were performed. A-2 Flow CD10 A-3 Flow CD13 A-5 Flow CD20 A-13 Flow CD117 A-14 FLOW CD138 A-1 Flow CD5 A-4 Flow CD19 A-6 Flow CD33 A-7 Flow CD34 A-8 Flow CD45 A-11 Flow CD38 A-12 Flow CD56 A-9 Joanna+CD19+ A-10 Lambda+CD19+ 07/07/2023 3:41 PM [facility] PATHOLOGY LAB Pathologist Location at [facility] 07/07/2023 3:41 PM [facility] PATHOLOG[facility] LAB Disclaimer Test performed at [facility], [address] [place] [address], [address]. *The established laboratory minimum viability is 70%. [...] complexity clinical testing. 07/07/2023 3:41 PM CDT [facility] Embedded Images 3:41 PM CDT [facility] Pathology/Cytolo gy BONE MARROW SPECIMEN / Unknown 07/07/2023 10:40 AM CDT 07/07/2023 12:52 PM CDT Miguel Reyna MD LAB - PATHOLOGY/CYT OLOGY ORDERABLES Final Result [facility] [address] [place] [address], [facility] [phone] documented in this encounter Visit Diagnoses Diagnosis Waldenstrom macroglobulinemia (HCC) Macroglobulinemia documented in this encounter
--- OUTSIDE RECORDS SUMMARY | 2024-10-17 12:51 | XMS_ITS | Encounter Summary ---
Author Organization [facility] Address [address] [facility] [place] [address] Care Team Providers Care Pilot Plant Operator Name Role Phone Unavailable Primary Care Provider Unavailabl e Encounter Details Date Type Department Care Team (Late st Contact Info) Description 07/08/2023 Lab Requisition [facility] - Pathology Lab [address] [place] [phone] Miguel Reyna MD [address] [address] Illness, unspecified Social History Tobacco [...] Report Bone Marrow Patholog y Report Case: [id number] Authorizing Provider: Miguel Reyna Collected: 07/07/2023 09:40 AM MD John Ordering Location: [facility] - Received: 07/08/2023 [...] cellularity). - See description. 07/09/2023 9:24 AM [facility] PATHOLOGY LAB at 0924 CDT AP Comment Immunohistochemistry is performed to assess staining [...] due to staining artifact. 07/09/2023 9:24 AM [facility] PATHOLOG[facility] LAB Peripheral Smear Description Not submitted. 07/09/2023 9:24 AM [facility] PATH[facility] LAB Bone Marrow Aspirate Differential [...] stain): no ring sideroblasts. 07/09/2023 9:24 AM [facility] PATH[facility] Bone Marrow Core Biopsy [...] similar to core biopsy. 07/09/2023 9:24 AM [facility] PATH[facility] Flow Cytometry Summary Bone marrow, flow cytometry ([id number]): - Apparent clonal B-cell population detected (~5% of overall cellularity) 07/09/2023 9:24 AM T [facility] PATHOLOGY LAB Clinical History Lymphoplasmacytic lymphoma diagnosed in 2019. 07/09/2023 9:24 AM T [facility] PATHOLOGY LAB Microscopic Description Received are 26 slide(s) and 4 blocks labeled [id number] along with a copy of the outside pathology report. [place] [address] . All original materials are returned to the referring institution, along with a copy of our final report. 07/09/2023 9:24 AM [facility] Pathologist Location at [facility] 07/09/2023 9:24 AM [facility] PATH[facility] LAB Disclaimer The performance characteristics of all immunohistochemical and indirect immunofluorescence stains (if any) cited in this report were determined by the Histopathology Laboratory of [facility]. Some of these tests were developed by [...] the attending (teaching) pathologist. 07/09/2023 9:24 AM [facility] PATH[facility] LAB Embedded Images 07/09/2023 9:24 AM T [facility] PATH[facility] LAB Pathology/Cytology BONE MARROW SPECIMEN / Unknown 07/07/2023 9:40 AM CDT 07/08/2023 1:53 PM CDT Miscellaneous samples (specimen) BONE MARROW SPECIMEN / Unknown 07/07/2023 9:40 AM CDT 07/08/2023 1:53 PM CDT us Miguel Reyna MD LAB - PATHOLOGY/CYT OLOGY ORDERABLES Final Result [facility] LAB [address] [place] [address], [facility] [phone] documented in this encounter Visit Diagnoses Diagnosis Illness, unspecified documented in this encounter
--- OUTSIDE RECORDS SUMMARY | 2024-10-17 12:51 | XMS_ITS | Clinical Summary ---
Author Organization [facility] Johanna medrano Jeannette Address [address] [place] [address] Care Team Providers Care Elastic Attacher Coverstitch Name Role Phone Kimberly Turner MD Primary Care Provider [phone] Allergies Active Allergy Reactions Criticality Noted Date Comments Aspirin Rash Low 01/02/2023 Iodinated Contrast Media Rash Low 01/02/2023 Nsaids (Non-Steroidal Anti-I nflammatory Drug) Anxiety Low 10/26/2023 Penicillins Rash Low 01/02/2023 Medications CALCIUM CARBONATE-RAYMUNDO MIN D3 ORAL Take by mouth. Act peggy acetaminophen (TYLENOL ARTHRITIS) 650 mg Extended Release tablet Take 650 mg by mouth every 6 hours as needed for Pain. Active predniSONE (DELTASONE) 10 mg tablet Take 10 mg by mouth see administration instructions. 025 Active methylPREDNISo lone (MEDROL DOSPACK) 4 mg Tablets, Dose Pack Use as directed 21 Tablet 025 Active alendronate (FOSAMAX) 70 mg tablet TAKE 1 TABLET (70 MG) BY MOUTH EVERY 7 DAYS ON AN EMPTY STOMACH BEFORE OTHER MEDS,WITH 8OZ OF WATER, STAY UPRIGHT 30 MIN 12 Tablet 1 025 Active zanubrutinib (Brukinsa) 80 mg capsuleIndicat ions:Macroglob ulinemia of Waldenstrom TAKE 2 CAPSULES BY MOUTH TWICE A DAY 120 Capsule 025 Active zanubrutinib (Brukinsa) 80 mg capsuleIndicat ions:Macroglob ulinemia of Waldenstrom TAKE 2 CAPSULES BY MOUTH TWICE A DAY 120 Capsule 025 2024 Discontinued Active Problems No known active problems Encounters Date Type Department Care Team Description 09/28/2024 External Device Data STL ABSTRACTION Provider, Abstract 09/28/2024 External Device Data STL ABSTRACTION Provider, Abstract 09/28/2024 External Device Data STL ABSTRACTION Provider, Abstract 09/18/[facility]24 [facility] [place] [address] [place] [phone] Luis Eduardo Dumont MD Macroglobulinemia of [place]denstrom 09/13/2024 Refill [facility] Oncology and Hematology - [place] [address] [place] [phone] Luis Eduardo Dumont MD 08/31/2024 External Device Data ST[facility] ABSTRACTION Provider, Abstract 08/31/2024 External Device Data STL ABSTRACTION Provider, Abstract 08/16/2024 [facility] [place] Oncology and Hematology - [place] [address] [place] [address] Luis Eduardo Dumont MD Rash Update 08/15/2024 [facility] - [place] [address] [place] [phone] Luis Eduardo Dumont MD 08/15/2024 Telephone [facility] Oncology and Hematology - [place] [address] [place] [address] Luis Eduardo Dumont MD Rash 08/09/2024 External Device Data STL ABSTRACTION Provider, Abstract 08/04/2024 External Device Data STL ABSTRACTION Provider, Abstract 08/03/2024 External Device Data STL ABSTRACTION Provider, Abstract 08/01/2024 Telephone [facility] Oncology and Hematology - [place] [address] [place] [phone] Luis Eduardo Dumont MD Rash 08/01/2024 Orders Only [facility] Oncology and Hematology - [place] [address] [place] [address] Luis Eduardo Dumont MD 07/19/2024 Refill [facility] Oncology and Hematology - [place] [address] [place] [address] Luis Eduardo Dumont MD Macroglobulinemia of Waldenstrom from Last 3 Months Family History Medical [...] Sign Reading Time Taken Comments Blood Pressure 101/60 07/15/2024 11:31 AM CDT Pulse 71 07/15/2024 11:31 AM CDT Temperature 36.3 C (97.4 F) 07/15/2024 11:31 AM CDT Respiratory Rate 16 07/15/2024 11:31 AM CDT Oxygen Saturation 96% 07/15/2024 11:31 AM CDT Inhaled Oxygen Concentration - - Weight 64.4 kg (142 lb) 07/15/2024 11:31 AM CDT Height 157.5 cm (5' 2) 01/02/2023 2:08 PM CDT Body Mass Index 25.97 01/02/2023 2:08 PM CDT Plan of Treatment Upcoming Encounters Date Type Department Care Team (Late st Contact Info) Description 10/21/2024 11:30 AM CDT Office Visit [facility] Oncology and Hematology - [place] [address] [facility] [address] [place] [address] Luis Eduardo Dumont MD [address] [facility] [address] [place] [address] Health Maintenance Due Date Last Done Comments DTAP/TDAP/TD VACCINES (1 - Tdap) 1960 PNEUMOCOCCAL VACCINE 50+ YEA RS (1 of 1 - PCV) 09/25/1991 ZOSTER VACCINE (1 of 2) 09/25/1991 OSTEOPOROSIS SCREENING 2006 RSV VACCINE (60+ or ) (1 - 1-dose 75+ series) 2016 Medicare Advantage (DC) Prev entative Visit/Annual Wellness Visit 03/16/2024 INFLUENZA VACCINE (#1) 2024 01/01/2022, 2020 Insurance [facility] PPO MCR RX MEDIMPACT Member Subscriber Plan / Payer (Ef fective 2023-Present) Name:Alyssa Davis Relation to Subscriber:Self Name:Alyssa Davis Payer ID:Not on file Group ID:[id number] Type:RX Medicare Part D Address: [facility] [employer] Medicare Part D RX [employer] Medicare Part D Care Teams Elastic Attacher Coverstitch Relationship Specialty Start Date End Date Kimberly Turner MD [address] [place] [address] PCP - General Family Practice 01/02/23
[2024-10-17 13:30] LABS: Hematocrit 43.1 % (37.0-47.0); Hemoglobin 14.2 g/dL (12.0-15.0); Immature Granulocyte Percent A 1.2 % (0-0.5); Lymphocytes Absolute Auto 1.65 K/mm3 (0.9-3.2); Mean Corpuscular HGB Conc 32.9 g/dl (32-36); Mean Corpuscular Hemoglobin 31.5 pg (26-34); Mean Corpuscular Volume 95.6 fl (80-100); Nucleated Red Blood Cells Absolute Auto 0.000 K/mm3 (0.0-0.012); Nucleated Red Blood Cells Perc 0.0 % (0.0-0.2); Platelet Count Result 302 k/mm3 (150-375); Red Blood Count 4.51 M/mm3 (4.2-5.4); White Blood Count 7.8 K/mm3 (4.5-10.0)
[2024-10-17 15:31] LABS: Alanine Aminotransferase 24 U/L (6-35); Albumin Level 4.3 g/dL (3.5-5.1); Alkaline Phosphatase 50 U/L (38-126); Anion Gap 6 mmol/L (4-12); Aspartate Amino Transferase 35 U/L (14-36); Bilirubin,Total 0.6 mg/dL (0.2-1.3); Blood Urea Nitrogen 17 mg/dL (7-17); Calcium 9.4 mg/dL (8.4-10.2); Carbon Dioxide 27 mmol/L (22-30); Chloride 106 mmol/L (98-107); Estimated Glomerular Filt Rate > 60; Glucose 94 mg/dL (65-110); Sodium 139 mmol/L (137-145); Total Protein 7.1 g/dL (6.3-8.2)
[2024-10-17 15:39] LABS: Potassium 4.6 mmol/L (3.4-5.0)
[2024-10-17 17:09] LABS: Immunoglobulin A < 40 mg/dL (70-400); Immunoglobulin G < 270 mg/dL (700-1600); Immunoglobulin M 1123 mg/dL (40-230)
[2024-10-18 14:08] LABS: Albumin 3.7 g/dL (2.9-4.4); Alpha-1-Globulin 0.2 g/dL (0.0-0.4); Alpha-2-Globulin 0.7 g/dL (0.4-1.0); Gamma Globulin 0.9 g/dL (0.4-1.8)
== END 2024-10-17 12:48 | disposition home or self-care (01) ==
PROVIDERS: PCP Family Medicine; Visit Provider Internal Medicine Hematology & Oncology
DX: C88.00 Waldenstrom macroglobulinemia not having achieved remission (principal)
CPT/HCPCS: 36415; 80053; 82784; 84155; 84165; 85025

== ENCOUNTER 2024-11-23 15:34 | Outpatient (CLI) | payer OTHER, SELFPAY ==
--- NOTE | ~2024-11-23 | MR_ITS ---
EXAMINATION: MR brain/brain stem wo con DATE: 11/23/2024 16:18 INDICATION: Other amnesia. TECHNIQUE: Magnetic resonance imaging (MRI) of the brain and brainstem was performed without intravenous contrast. COMPARISON: None. 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 There are scattered areas of nonspecific increased T2-weighted signal intensity in the cerebral white matter and doris. There is no intracranial hemorrhage, acute infarction, or abnormal intracranial mass lesion. The ventricles are normal in size. The orbits are normal. The paranasal sinuses are clear. The mastoid air cells are normal. IMPRESSION: 1. 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 2. Moderate nonspecific cerebral white matter disease and pontine disease, which likely represents chronic small vessel ischemic disease. Reviewed, dictated and finalized at location E. IMPRESSION: 1. 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 2. Moderate nonspecific cerebral white matter disease and pontine disease, whic h likely represents chronic small vessel ischemic disease.
--- OUTSIDE RECORDS SUMMARY | 2024-11-23 15:52 | XMS_ITS | Clinical Summary ---
Author Organization [facility]rano [facility] Address [address] [address] Care Team Providers Care Riffler Tender Name Role Phone Kimberly Turner MD Primary Care Provider [phone] Allergies Active Allergy Reactions Criticality Noted Date [...] Waldenstrom TAKE 2 CAPSULES BY MOUTH TWICE DAILY. 120 Capsule 1 025 Active zanubrutinib (Brukinsa) 80 mg capsuleIndicat ions:Macroglob ulinemia of Waldenstrom TAKE 2 CAPSULES BY MOUTH TWICE A DAY 120 Capsule 025 2024 Discontinued Active Problems No known active problems Encounters Date Type Department Care Team Description 11/21/2024 Refill [facility] Oncology and Hematology - [place] [address] [place] [address] Luis Eduardo Dumont MD Macroglobulinemia of [place]strom 11/15/2024 External Device Data STL ABSTRACTION Provider, Abstract 11/02/2024 External Device Data STL ABSTRACTION Provider, Abstract 10/21/2024 11:30 AM CDT Office Visit [facility] Oncology and Hematology - [place] [address] [place] [address] Luis Eduardo Dumont MD Macroglobulinemia of Wal[place]strom (Primary Dx) 10/19/2024 External Device Data STL ABSTRACTION Provider, Abstract 10/19/2024 Abstract [facility] Oncology and Hematology - [place] [address] [place] [address] Luis Eduardo Dumont MD 10/18/2024 Orders Only [facility] Oncology and Hematology - [place] [address] [place] [address] Luis Eduardo Dumont MD 09/28/2024 External Device Data STL ABSTRACTION Provider, Abstract 09/28/2024 External Device Data STL ABSTRACTION Provider, Abstract 09/28/2024 External Device Data STL ABSTRACTION Provider, Abstract 09/18/2024 Refill [facility] Oncology and Hematology - [place] [address] [place] [address] Luis Eduardo Dumont MD Macroglobulinemia of Wal[place]strom 09/13/2024 Refill [facility] Oncology and Hematology - [place] [address] [place] [address] Luis Eduardo Dumont MD 08/31/2024 External Device [...] Sign Reading Time Taken Comments Blood Pressure 113/65 10/21/2024 11:24 AM CDT Pulse 68 10/21/2024 11:24 AM CDT Temperature 36.4 C (97.5 F) 10/21/2024 11:24 AM CDT Respiratory Rate 16 10/21/2024 11:2 4 AM CDT Oxygen Saturation 96% 10/21/2024 11: 24 AM CDT Inhaled Oxygen Concentration - - Weight 64.3 kg (141 lb 12.8 oz) 025 11:24 AM CDT Height 157.5 cm (5' 2) 01/02/2023 2:08 PM CDT Body Mass Index 25.94 01/02/2023 2:08 PM CDT Plan of Treatment Upcoming Encounters Date Type Department Care Team (Late st Contact Info) Description 02/03/2025 10:45 AM PLUMBER SUPERVISOR Office Visit [facility] Oncology and Hematology - [place] [address] [place] [address] [facility] [address] [place] [address] Luis Eduardo Dumont MD [address] [facility] [address] [place] [address] Health Maintenance Due Date Last Done Comments DTAP/TDAP/TD VACCINES (1 - Tdap) 1960 PNEUMOCOCCAL VACCINE 50+ YEA RS (1 of 1 - PCV) 09/25/1991 ZOSTER VACCINE (1 of 2) 09/25/1991 OSTEOPOROSIS SCREENING 2006 RSV VACCINE (60+ or ) (1 - 1-dose 75+ series) 2016 INFLUENZA VACCINE (#1) 2024 01/01/2022, 2020 Procedures Procedure Name Priority Date/Time Associated Diagnosis Comments PROTEIN ELECTROPHORESIS, CSF Routine 10/17/2024 3:47 PM CDT IMMUNOGLOBULINS IGG IGA IGM Routine 06/2024 11:52 AM CDT COMPREHENSIVE METABOLIC PANEL Routine 10/17/2024 11:34 AM CDT COMPREHENSIVE METABOLIC PANEL Routine 10/17/2024 10:44 AM CDT CBC WITH AUTODIFFERENTIAL Routine 2024 9:36 AM CDT from Last 3 Months Results * PROTEIN ELECTROPHORESIS, CSF (10/17/2024 3:47 PM CDT) Cerebrospinal fluid CEREBROSPINAL FLUID / Unknown us Luis Eduardo Dumont MD BODY FLUIDS AND STOOLS Final Re sult * IMMUNOGLOBULINS IGG IGA IGM (10/17/2024 11:52 AM CDT) Blood us Luis Eduardo Dumont MD CHEMISTRY ORDERABLES Final Resu lt * COMPREHENSIVE METABOLIC PANEL (10/17/2024 11:34 AM CDT) Only the most recent of2 resultswithin the time period is included. Blood us Luis Eduardo Dumont MD CHEMISTRY ORDERABLES Final Resu lt * CBC WITH AUTODIFFERENTIAL (10/17/2024 9:36 AM CDT) Blood us Luis Eduardo Dumont MD HEMATOLOGY ORDERABLES Final Res ult from Last 3 Months Insurance [facility] RX MEDIMPACT Member Subscriber Plan / Payer (Ef fective 2023-Present) Name:Alyssa Davis Relation to Subscriber:Self Name:Lupe Davisgonzalo Beltre Payer ID:Not on file Group ID:[id number] Type:RX Medicare Part D Address: [facility] [employer] Medicare Part D RX [employer] Medicare Part D Care Teams Riffler Tender Relationship Specialty Start Date End Date Kimberly Turner MD [address] [place] [phone] PCP - General Family Practice 01/02/23
--- OUTSIDE RECORDS SUMMARY | 2024-11-23 15:52 | XMS_ITS | Encounter Summary ---
Author Organization [facility] Address [address] [facility] [place] [address] Care Team Providers Care On Site Construction Superintendent Name Role Phone Unavailable Primary Care Provider Unavailabl e Encounter Details Date Type Department Care Team (Late st Contact Info) Description 07/08/2023 Lab Requisition [facility] - Pathology Lab [address] [place] [phone] Miguel Reyna MD [address] [address] Illness, unspecified Social History Tobacco [...] Report Bone Marrow Patholog y Report Case: [id number] Authorizing Provider: Miguel Reyna Collected: 07/07/2023 09:40 AM MD John Ordering Location: [facility] - Received: 07/08/2023 01:53 PM [...] cellularity). - See description. 07/09/2023 9:24 AM [facility] at 0924 CDT AP Comment [...] due to staining artifact. 07/09/2023 9:24 AM [facility] Peripheral Smear Description Not submitted. 07/09/2023 9:24 AM [facility] Bone Marrow Aspirate Differential count [...] stain): no ring sideroblasts. 07/09/2023 9:24 AM [facility] Bone Marrow Core Biopsy and [...] similar to core biopsy. 07/09/2023 9:24 AM [facility] Flow Cytometry Summary Bone marrow, flow cytometry ([id number]): - Apparent clonal B-cell population detected (~5% of overall cellularity) 07/09/2023 9:24 AM [facility] Clinical History Lymphoplasmacytic lymphoma diagnosed in 2019. 07/09/2023 9:24 AM [facility] Microscopic Description Received are 26 slide(s) and 4 blocks labeled [id number] along with a copy of the outside pathology report. [place] [address] . All original materials are returned to the referring institution, along with a copy of our final report. 07/09/2023 9:24 AM [facility] Pathologist Location at [facility] 07/09/2023 9:24 AM [facility] Disclaimer The performance characteristics of all immunohistochemical and indirect immunofluorescence stains (if any) cited in this report were determined by the Histopathology Laboratory of [facility]. Some of these tests [...] the attending (teaching) pathologist. 07/09/2023 9:24 AM [facility] Embedded Images 07/09/2023 9:24 AM [facility] Pathology/Cytology BONE MARROW SPECIMEN / Unknown 07/07/2023 9:40 AM CDT 07/08/2023 1:53 PM CDT Miscellaneous samples (specimen) BONE MARROW SPECIMEN / Unknown 07/07/2023 9:40 AM CDT 07/08/2023 1:53 PM CDT us Miguel Reyna MD LAB - PATHOLOGY/CYT OLOGY ORDERABLES Final Result [facility] [address] [place] [address], [facility] [phone] documented in this encounter Visit Diagnoses Diagnosis Illness, unspecified documented in this encounter
--- OUTSIDE RECORDS SUMMARY | 2024-11-23 15:52 | XMS_ITS | Encounter Summary ---
Author Organization [facility] Address [address] [place] [place] [address] Care Team Providers Care Property And Casualty Insurance Agent Name Role Phone Unavailable Primary Care Provider Unavailabl e Encounter Details Date Type Department Care Team (Latest Contact Info) Description 07/07/2023 Lab Requisition [facility] - Pathology Lab [address] [place] [phone] Miguel Reyna MD [address] [address] Waldenstrom macroglobulinemia (HCC) Social History [...] AM CDT) Case Report Flow Cytometry Case: [id number] Authorizing Provider: Miguel Reyna Collected: 07/07/2023 10:40 AM MD John Ordering Location: [facility] - Received: 07/07/2023 12:52 PM Pathology Lab Pathologist: Gabi David MD Specimen: Bone Marrow 07/07/2023 3:41 PM CDT U PATHOLOGY LAB Final Diagnosis Bone marrow, flow cytometry: - Apparent clonal B-cell population detected (~5% of overall cellularity) 07/07/2023 3:41 PM [facility] at 1541 CDT Flow Cytometry Interpretation Viability: 71% B-cells: monoclonal, kappa-restricted, ~5%, CD19+, CD20+ with no CD5 or CD10 co-expression. T-cells: not increased Blasts: not increased Plasma cells: no significant population detected A bone marrow aspirate smear prepared from the flow cytometry specimen has been reviewed for fiberglass quality technician purposes. 07/07/2023 3:41 PM [facility] Flow Cytometry Results Differential Result Comment Flow Cell Count /uL 6,800 Total Viability % 71.0 Lymphocytes % 29 Dim CD45 Region % 2 Monocytes % 9 Granulocytes % 58 07/07/2023 3:41 PM [facility] Reason for test Waldenstrom macroglobulinemia (HCC) 273.3 07/07/2023 3:41 PM [facility] Client Specimen ID # [id number] 07/07/2023 3:41 PM [facility] Number of markers 14 were performed. A-2 Flow CD10 A-3 Flow CD13 A-5 Flow CD20 A-13 Flow CD117 A-14 FLOW CD138 A-1 Flow CD5 A-4 Flow CD19 A-6 Flow CD33 A-7 Flow CD34 A-8 Flow CD45 A-11 Flow CD38 A-12 Flow CD56 A-9 Wyatt+CD19+ A-10 Lambda+CD19+ 07/07/2023 3:41 PM [facility] Pathologist Location at [facility] 07/07/2023 3:41 PM [facility] Disclaimer Test performed at [facility], [address] [place] [address], [address]. *The established laboratory minimum viability is 70%. [...] complexity clinical testing. 07/07/2023 3:41 PM CDT [facility] Embedded Images 3:41 PM CDT [facility] Pathology/Cytolo gy BONE MARROW SPECIMEN / Unknown 07/07/2023 10:40 AM CDT 07/07/2023 12:52 PM CDT Miguel Reyna MD LAB - PATHOLOGY/CYT OLOGY ORDERABLES Final Result [facility] [address] [facility] [place] [address], [facility] [phone] documented in this encounter Visit Diagnoses Diagnosis Waldenstrom macroglobulinemia (HCC) Macroglobulinemia documented in this encounter
--- OUTSIDE RECORDS SUMMARY | 2024-11-23 15:52 | XMS_ITS | Clinical Summary ---
Author Organization [facility] Address [address] [place] [address] Care Team Providers Care Plastic Die Maker Apprentice Name Role Phone Unavailable Primary Care Provider Unavailabl e Source Comments [facility],non-owned Affiliates and Associated Physician Practices is amultiple site organization consisting of ambulatory clinics and hospital sitesin [place], [place]. This disclosure is being madepursuant to the Care Everywhere program and may not contain all information available regarding this patient. Last updated 17.[facility] Social History Tobacco Use Types Packs/Day Years [...]
--- OUTSIDE RECORDS SUMMARY | 2024-11-23 15:52 | XMS_ITS | Patient Health Record ---
Author Organization [facility] Address [address] [facility] [address] [place] [address] Support Name Relationship Address Phone KESHIA BLAIR Guarantor Unknown [phone] Reason For Referral No Information Medications Medication SIG (Take, Route, Frequency, Duration) Notes Start Date End Date Status Triamcinolone Acetonide *Pick strength-form from Medispan for eRX* Active vitamin D3-folic acid *Reorder f rom Medispan for eRx and Interaction Alerts* Active Immunizations Vaccine Route Administration Date Status Comme nts Influenza, quadrivalent, spl it, preservative free, 3 years or older Unknown 04/05/2018 Administered Influenza, quadrivalent, spl it, preservative free, 3 years or older Unknown 02/03/2019 Administered Influenza, quadrivalent, spl it, preservative free, 3 years or older Unknown 11/15/2019 Administered Pfizer FSLogix Covid-19 Vac cine 2nd dose Unknown 05/03/2020 Administered Pneumococcal polysaccharide PPV23 Unknown 10/15/2020 Ad ministered Problems Problem Type SNOMED Code ICD Code Onset Dates Problem Status W/U Status Risk Notes Problem Waldenstrom macroglobulinemia (22519297) Waldenstrom macroglobulinemia (C88.0) Active confirmed Problem Eustachian tube disorder (43457073) Other specified disorders of Eustachian tube, unspecified ear (H69.80) Active confirmed Problem Sensorineural hearing loss (75010056) Unspecified sensorineural hearing loss (H90.5) Active confirmed Problem Tinnitus (82305333) Tinnitus, unspecified ear (H93.19) Active confirmed Problem Disorder of ear (83048016) Other specified disorders of ear, bilateral (H93.8X3) 021 Active confirmed Problem Body mass index 25-29 - overweight (638935590) Body mass index (BMI) 26.0-26.9, adult (Z68.26) 021 Active confirmed Plan Of Treatment No Information Insurance Providers Payer Name Payer Address Payer Phone Subscriber Number Group Number Insured Name Patient Relationship to Insured Coverage Start Date Coverage End Date Medicare Part B Tn [address] [place] [address] [id number] KESHIA BLAIR Self - patient is the insured [address] [employer] [address] [address] [place] [address] [id number] KESHIA BLAIR Self - patient is the insured 9
== END 2024-11-23 15:35 | disposition home or self-care (01) ==
PROVIDERS: PCP Family Medicine; Visit Provider Family Medicine
DX: R41.3 Other amnesia (principal); R90.82 White matter disease, unspecified
CPT/HCPCS: 70551

== ENCOUNTER 2024-12-14 13:33 | Outpatient (CLI) | payer OTHER, SELFPAY ==
--- NOTE | ~2024-12-14 | US_ITS ---
EXAMINATION: US carotid duplex BI DATE: 12/14/2024 14:24 INDICATION: Cerebral infarction, unspecified. TECHNIQUE: Grayscale, color Doppler, and pulsed Doppler images of the cervical carotid arteries were obtained. The degree of vessel stenosis is placed in one of the following categories: normal, <50%, 50-69%, >=70% but less than near- occlusion, near-occlusion, or total occlusion. Note that percent stenosis relative to normal distal artery lumen diameter is indirectly measured from velocity measurements as described by Del, et al. Radiology 2003; 229:340-346. COMPARISON: None. FINDINGS: RIGHT: The right common carotid artery (CCA) peak systolic velocity (PSV) is 71 cm/s. The right internal carotid artery (ICA) PSV is 93 cm/s. The right ICA end- diastolic velocity (EDV) is 27 cm/s. The right ICA/CCA PSV ratio is 1.3. Grayscale and color Doppler images yield an estimate of <50% diameter reduction from plaque in the ICA. There is antegrade flow in the right vertebral artery. LEFT: The left CCA PSV is 69 cm/s. The left ICA PSV is 76 cm/s. The left ICA EDV is 18 cm/s. The left ICA/CCA PSV ratio is 1.1. Grayscale and color Doppler images yield an estimate of <50% diameter reduction from plaque in the ICA. There is antegrade flow in the left vertebral artery. IMPRESSION: 1. <50% stenosis in the right internal carotid artery. 2. <50% stenosis in the left internal carotid artery. Reviewed, dictated and finalized at location E.
--- OUTSIDE RECORDS SUMMARY | 2024-12-14 13:37 | XMS_ITS | Encounter Summary ---
Author Organization [facility] Address [address] [place] [address] Care Team Providers Care Appeals Analyst Name Role Phone Unavailable Primary Care Provider Unavailabl e Encounter Details Date Type Department Care Team (Late st Contact Info) Description 07/08/[address] [facility] - Pathology Lab [address] [place] [phone] Miguel Reyna MD [address] [address] Illness, unspecified Social History Tobacco [...] Report Bone Marrow Patholog y Report Case: [id number] Authorizing Provider: Miguel Reyna Collected: 07/07/2023 09:40 AM MD John Ordering Location: [facility] - Received: 07/08/2023 [...] cellularity). - See description. 07/09/2023 9:24 AM [facility] LAB at 0924 CDT AP Comment [...] due to staining artifact. 07/09/2023 9:24 AM [facility] Peripheral Smear Description Not submitted. 07/09/2023 9:24 AM [facility] Bone Marrow Aspirate Differential count [...] stain): no ring sideroblasts. 07/09/2023 9:24 AM [facility] Bone Marrow Core Biopsy and [...] similar to core biopsy. 07/09/2023 9:24 AM [facility] Flow Cytometry Summary Bone marrow, flow cytometry ([id number]): - Apparent clonal B-cell population detected (~5% of overall cellularity) 07/09/2023 9:24 AM [facility] PATH[facility] LAB Clinical History Lymphoplasmacytic lymphoma diagnosed in 2019. 07/09/2023 9:24 AM [facility] Microscopic Description Received are 26 slide(s) and 4 blocks labeled [id number] along with a copy of the outside pathology report. [place] [address] . All original materials are returned to the referring institution, along with a copy of our final report. 07/09/2023 9:[address] [facility] Pathologist Location at [facility] 07/09/2023 9:24 AM [facility] Disclaimer The performance characteristics of all immunohistochemical and indirect immunofluorescence stains (if any) cited in this report were determined by the Histopathology Laboratory of [facility]. Some of these tests were developed [...] the attending (teaching) pathologist. 07/09/2023 9:24 AM [facility] Embedded Images 07/09/2023 9:24 AM [facility] Pathology/Cytology BONE MARROW SPECIMEN / Unknown 07/07/2023 9:40 AM CDT 07/08/2023 1:53 PM CDT Miscellaneous samples (specimen) BONE MARROW SPECIMEN / Unknown 07/07/2023 9:40 AM CDT 07/08/2023 1:53 PM CDT us Miguel Reyna MD LAB - PATHOLOGY/CYT OLOGY ORDERABLES Final Result [facility] [address] [place] [address], [facility] [phone] documented in this encounter Visit Diagnoses Diagnosis Illness, unspecified documented in this encounter
--- OUTSIDE RECORDS SUMMARY | 2024-12-14 13:37 | XMS_ITS | Clinical Summary ---
Author Organization [facility] Address [address] [facility] [address] [facility] [place] [address] Care Team Providers Care Edge Glue Machine Tender Name Role Phone Unavailable Primary Care Provider Unavailabl e Source Comments [facility],non-owned Affiliates and Associated Physician Practices is amultiple site organization consisting of ambulatory clinics and hospital sitesin [place], [place], [place] and [place]. This disclosure is being madepursuant to the Care Everywhere program and may not contain all information available regarding this patient. Last updated 17.[facility] Social History Tobacco Use Types Packs/Day Years [...] yrs (1 - 1-dose 75+ series) 2016 DEPRESSION SCREENING 03/16/2024 COVID-19 VACCINE ( - 2023-2 5 season) 2024 INFLUENZA VACCINE (#1) 2024 HEPATITIS B VACCINE [...]
--- OUTSIDE RECORDS SUMMARY | 2024-12-14 13:37 | XMS_ITS | Encounter Summary ---
Author Organization [facility] Address [address] [place] [place] [address] Care Team Providers Care Buyer Intern Name Role Phone Unavailable Primary Care Provider Unavailabl e Encounter Details Date Type Department Care Team (Latest Contact Info) Description 07/07/2023 Lab Requisition [facility] - Pathology Lab [address] [place] [phone] Miguel Reyna MD [address] [address] Waldenstrom macroglobulinemia (HCC) Social History [...] AM CDT) Case Report Flow Cytometry Case: [id number] Authorizing Provider: Miguel Reyna Collected: 07/07/2023 10:40 AM MD John Ordering Location: [facility] - Received: 07/07/2023 12:52 PM Pathology Lab Pathologist: Gabi David MD Specimen: Bone Marrow 07/07/2023 3:41 PM CDT U PATHOLOGY LAB Final Diagnosis Bone marrow, flow cytometry: - Apparent clonal B-cell population detected (~5% of overall cellularity) 07/07/2023 3:41 PM [facility] PATH[facility] LAB at 1541 CDT Flow Cytometry Interpretation Viability: 71% B-cells: monoclonal, kappa-restricted, ~5%, CD19+, CD20+ with no CD5 or CD10 co-expression. T-cells: not increased Blasts: not increased Plasma cells: no significant population detected A bone marrow aspirate smear prepared from the flow cytometry specimen has been reviewed for quality assurance auditor purposes. 07/07/2023 3:41 PM [facility] Flow Cytometry Results Differential Result Comment Flow Cell Count /uL 6,800 Total Viability % 71.0 Lymphocytes % 29 Dim CD45 Region % 2 Monocytes % 9 Granulocytes % 58 07/07/2023 3:41 PM [facility] Reason for test Waldenstrom macroglobulinemia (HCC) 273.3 07/07/2023 3:41 PM [facility] Client Specimen ID # [id number] 07/07/2023 3:41 PM [facility] Number of markers 14 were performed. A-2 Flow CD10 A-3 Flow CD13 A-5 Flow CD20 A-13 Flow CD117 A-14 FLOW CD138 A-1 Flow CD5 A-4 Flow CD19 A-6 Flow CD33 A-7 Flow CD34 A-8 Flow CD45 A-11 Flow CD38 A-12 Flow CD56 A-9 Newfolden+CD19+ A-10 Lambda+CD19+ 07/07/2023 3:41 PM [facility] Pathologist Location at [facility] 07/07/2023 3:41 PM [facility] Disclaimer Test performed at [facility], [address] [place] [address], [address]. *The established laboratory minimum viability is 70%. [...] complexity clinical testing. 07/07/2023 3:41 PM CDT [facility] Embedded Images 3:41 PM CDT [facility] Pathology/Cytolo gy BONE MARROW SPECIMEN / Unknown 07/07/2023 10:40 AM CDT 07/07/2023 12:52 PM CDT Miguel Reyna MD LAB - PATHOLOGY/CYT OLOGY ORDERABLES Final Result [facility] [address] [place] [place] [address], [facility] [phone] documented in this encounter Visit Diagnoses Diagnosis Waldenstrom macroglobulinemia (HCC) Macroglobulinemia documented in this encounter
--- OUTSIDE RECORDS SUMMARY | 2024-12-14 13:37 | XMS_ITS | Clinical Summary ---
Author Organization [facility] Johanna medrano Jeannette Address [address] [place] [address] Care Team Providers Care Employee Relations Administrator Name Role Phone Kimberly Turner MD Primary Care Provider [phone] Allergies Active Allergy Reactions Criticality Noted Date [...] Encounters Date Type Department Care Team Description 12/01/2024 Abstract [facility] - [address] [place] [address] Luis Eduardo Dumont MD 11/21/2024 Refill [facility] - [address] [place] [address] Luis Eduardo Dumont MD Macroglobulinemia of Waldenstrom 11/15/2024 External Device Data STL ABSTRACTION Provider, Abstract 11/02/2024 External Device Data ST[facility] ABSTRACTION Provider, Abstract 10/21/2024 11:30 AM CDT Office Visit [facility] - [address] [place] [address] Luis Eduardo Dumont MD Macroglobulinemia of Waldenstrom (Primary Dx) 10/19/2024 External Device Data STL ABSTRACTION Provider, Abstract 10/19/2024 Abstract [facility] - [address] [place] [address] Luis Eduardo Dumont MD 10/18/2024 Orders Only [facility] - [address] [place] [address] Luis Eduardo Dumont MD 09/28/2024 External Device Data STL ABSTRACTION Provider, Abstract 09/28/2024 External Device Data STL ABSTRACTION Provider, Abstract 09/28/2024 External Device Data STL ABSTRACTION Provider, Abstract 09/18/2024 Refill [facility] - [address] [place] [address] Luis Eduardo Dumont MD Macroglobulinemia of Waldenstrom 09/13/2024 Refill [facility] - [address] [place] [address] Luis Eduardo Dumont MD from Last 3 Months Family History Medical [...] st Contact Info) Description 02/03/2025 10:45 AM GLUE SPREADER Office Visit [facility] - [address] [facility] [address] [place] [address] Luis Eduardo Dumont MD [address] [facility] [address] [place] [address] Health Maintenance Due Date Last [...] Res ult from Last 3 Months Insurance [facility] [place] [id number] RX MEDIMPACT Member Subscriber Plan / Payer (Ef fective 2023-Present) Name:Alyssa Davis Relation to Subscriber:Self Name:Alyssa Davis Payer ID:Not on file Group ID:[id number] Type:RX Medicare Part D Address: [place] [facility] [employer] Medicare Part D RX [employer] Medicare Part D Care Teams Employee Relations Administrator Relationship Specialty Start Date End Date Kimberly Turner MD [address] [place] [address] PCP - General Family Practice 01/02/23
== END 2024-12-14 13:34 | disposition home or self-care (01) ==
PROVIDERS: PCP Family Medicine; Visit Provider Family Medicine
DX: I63.9 Cerebral infarction, unspecified (principal); I65.23 Occlusion and stenosis of bilateral carotid arteries
CPT/HCPCS: 93880

== ENCOUNTER 2024-12-23 07:41 | Outpatient (CLI) | payer OTHER, SELFPAY ==
--- OUTSIDE RECORDS SUMMARY | 2024-12-23 07:44 | XMS_ITS | Encounter Summary ---
Author Organization [facility] Address [address] [place] [address] Care Team Providers Care Care Assistant Name Role Phone Unavailable Primary Care Provider Unavailabl e Encounter Details Date Type Department Care Team (Latest Contact Info) Description 07/07/2023 Lab Requisition [facility] - Pathology Lab [address] [place] [id number] Miguel Reyna MD [address] [address] Waldenstrom macroglobulinemia (HCC) Social History [...] AM CDT) Case Report Flow Cytometry Case: [id number] Authorizing Provider: Miguel Reyna Collected: 07/07/2023 10:40 AM MD John Ordering Location: [facility] - Received: 07/07/2023 12:52 PM Pathology Lab Pathologist: Gabi David MD Specimen: Bone Marrow 07/07/2023 3:41 PM CDT U PATHOLOGY LAB Final Diagnosis Bone marrow, flow cytometry: - Apparent clonal B-cell population detected (~5% of overall cellularity) 07/07/2023 3:41 PM [facility] PATHOLOGY LAB at 1541 CDT Flow Cytometry Interpretation Viability: 71% B-cells: monoclonal, kappa-restricted, ~5%, CD19+, CD20+ with no CD5 or CD10 co-expression. T-cells: not increased Blasts: not increased Plasma cells: no significant population detected A bone marrow aspirate smear prepared from the flow cytometry specimen has been reviewed for air quality technician purposes. 07/07/2023 3:41 PM [facility] PATHOLOGY LAB Flow Cytometry Results Differential Result Comment Flow Cell Count /uL 6,800 Total Viability % 71.0 Lymphocytes % 29 Dim CD45 Region % 2 Monocytes % 9 Granulocytes % 58 07/07/2023 3:41 PM [facility] PATHOLOGY LAB Reason for test Waldenstrom macroglobulinemia (HCC) 273.3 07/07/2023 3:41 PM [facility] PATHOLOGY LAB Client Specimen ID # [id number] 07/07/2023 3:41 PM [facility] PATHOLOGY LAB Number of markers 14 were performed. A-2 Flow CD10 A-3 Flow CD13 A-5 Flow CD20 A-13 Flow CD117 A-14 FLOW CD138 A-1 Flow CD5 A-4 Flow CD19 A-6 Flow CD33 A-7 Flow CD34 A-8 Flow CD45 A-11 Flow CD38 A-12 Flow CD56 A-9 [place]+CD19+ A-10 Lambda+CD19+ 07/07/2023 3:41 PM [facility] PATHOLOGY LAB Pathologist Location at [facility] 07/07/2023 3:41 PM [facility] PATHOLOGY LAB Disclaimer Test performed at [facility], [address] [place] [address], [address]. *The established laboratory minimum viability is 70%. [...] complexity clinical testing. 07/07/2023 3:41 PM CDT [facility] PATHOLOGY LAB Embedded Images 3:41 PM CDT [facility] PATHOLOGY LAB Pathology/Cytolo gy BONE MARROW SPECIMEN / Unknown 07/07/2023 10:40 AM CDT 07/07/2023 12:52 PM CDT Miguel Reyna MD LAB - PATHOLOGY/CYT OLOGY ORDERABLES Final Result [facility] PATHOLOGY LAB [address] [facility] [place] [address], [facility] [phone] documented in this encounter Visit Diagnoses Diagnosis Waldenstrom macroglobulinemia (HCC) Macroglobulinemia documented in this encounter
--- OUTSIDE RECORDS SUMMARY | 2024-12-23 07:44 | XMS_ITS | Encounter Summary ---
Author Organization [facility] Address [address] [facility] [place] [address] Care Team Providers Care Support Assistant Name Role Phone Unavailable Primary Care Provider Unavailabl e Encounter Details Date Type Department Care Team (Late st Contact Info) Description 07/08/2023 Lab Requisition [facility] - Pathology Lab [address] [place] [phone] Miguel Reyna MD [address] [address] Illness, unspecified Social History Tobacco [...] Report Bone Marrow Patholog y Report Case: [id number] Authorizing Provider: Miguel Reyna Collected: 07/07/2023 09:40 AM MD John Ordering Location: [facility] - Received: 07/08/2023 [...] cellularity). - See description. 07/09/2023 9:24 AM [facility] PATHOLOGY LAB at 0924 CDT AP Comment [...] due to staining artifact. 07/09/2023 9:24 AM [facility] PATHOLOGY LAB Peripheral Smear Description Not submitted. 07/09/2023 9:24 AM [facility] PATHOLOGY LAB Bone Marrow Aspirate Differential count [...] stain): no ring sideroblasts. 07/09/2023 9:24 AM [facility] PATHOLOGY LAB Bone Marrow Core Biopsy and [...] similar to core biopsy. 07/09/2023 9:24 AM [facility] PATHOLOGY LAB Flow Cytometry Summary Bone marrow, flow cytometry ([id number]): - Apparent clonal B-cell population detected (~5% of overall cellularity) 07/09/2023 9:24 AM T [facility] PATHOLOGY LAB Clinical History Lymphoplasmacytic lymphoma diagnosed in 2019. 07/09/2023 9:24 AM T [facility] PATHOLOGY LAB Microscopic Description Received are 26 slide(s) and 4 blocks labeled [id number] along with a copy of the outside pathology report. [place] [address] . All original materials are returned to the referring institution, along with a copy of our final report. 07/09/2023 9:24 AM [facility] Pathologist Location at [facility] 07/09/2023 9:24 AM [facility] PATHOLOGY LAB Disclaimer The performance characteristics of all immunohistochemical and indirect immunofluorescence stains (if any) cited in this report were determined by the Histopathology Laboratory of [facility]. Some of these tests were developed [...] the attending (teaching) pathologist. 07/09/2023 9:24 AM [facility] PATHOLOGY LAB Embedded Images 07/09/2023 9:24 AM T [facility] PATHOLOGY LAB Pathology/Cytology BONE MARROW SPECIMEN / Unknown 07/07/2023 9:40 AM CDT 07/08/2023 1:53 PM CDT Miscellaneous samples (specimen) BONE MARROW SPECIMEN / Unknown 07/07/2023 9:40 AM CDT 07/08/2023 1:53 PM CDT us Miguel Reyna MD LAB - PATHOLOGY/CYT OLOGY ORDERABLES Final Result [facility] PATHOLOGY LAB [address] [place] [address], [facility] [phone] documented in this encounter Visit Diagnoses Diagnosis Illness, unspecified documented in this encounter
--- NOTE | 2024-12-23 07:52 | ECHO_ITS ---
Patient Info Name: Alyssa Davis Age: 84 years : 1940 Gender: Female Ht: 62 in Wt: 138 lbs BSA: 1.67 m2 HR: 71 bpm BP: 115 / 71 mmHg Heart Rhythm: Sinus Rhythm Technical Quality: Fair Exam Date: 12/23/2024 8:01 AM Patient Status: O Admit Date: 12/23/2024 Exam Type: CA echo doppler color flow Complete two-dimensional, color flow and Doppler transthoracic echocardiogram is performed. Quarantine Officer: Anamika Agudelo Attending Provider: Kimberly Turner Summary 1. Complete two-dimensional, color flow and Doppler transthoracic echocardiogram is performed. 2. Left ventricular chamber dimension is normal. 3. Left ventricular systolic function is normal, estimated at 65-70. 4. The left ventricular diastolic function is abnormal. 5. E/e' 11 is mildly elevated. 6. Left atrial chamber dimension is mildly enlarged. 7. The mitral valve has a moderately calcified annulus. 8. There is trace tricuspid valve regurgitation. 9. No pulmonary hypertension, estimated pulmonary arterial systolic pressure is 23 mmHg. Left Ventricle E/e' 11 is mildly elevated. Left ventricular chamber dimension is normal. Left ventricular systolic function is normal, estimated at 65-70. The left ventricular diastolic function is abnormal. Right Ventricle Right ventricular chamber dimension is normal. Right ventricular systolic function is normal and with normal TAPSE 1.8 cm. Left Atria Left atrial chamber dimension is mildly enlarged. Right Atria Right atrial chamber dimension is normal. Aortic Valve The aortic valve is trileaflet. There is no aortic valve stenosis. There is trace aortic valve regurgitation. Pulmonic Valve There is no pulmonic regurgitation. Mitral Valve The mitral valve has a moderately calcified annulus. There is no mitral valve stenosis. There is no mitral valve regurgitation. Tricuspid Valve There is trace tricuspid valve regurgitation. No pulmonary hypertension, estimated pulmonary arterial systolic pressure is 23 mmHg. Pericardium/Pleural There is no pericardial effusion. Inferior Vena Cava Normal inferior vena cava with >50% collapse upon inspiration consistent with normal right atrial pressure, 5 mmHg. Aorta The aortic root size at the sinus of Valsalva is normal. Left Ventricular Outflow Tract Name Value Normal LVOT 2D LVOT Diameter 2.0 cm LVOT Doppler LVOT Peak Velocity 113 cm/s LVOT Peak Gradient 5 mmHg LVOT Mean Gradient 2 mmHg LVOT VTI 22 cm LVOT VTI/AV VTI Ratio 0.7 LVOT Stroke Volume 66 ml LVOT CO 3.7 l/min LVOT CI 2.2 l/min/m2 Pulmonic Valve Name Value Normal RVOT Doppler RVOT Peak Velocity 70 cm/s RVOT Peak Gradient 2 mmHg PV Doppler PV Peak Velocity 105 cm/s PV Peak Gradient 4 mmHg Mitral Valve Name Value Normal MV Diastolic Function MV E Peak Velocity 66 cm/s MV A Peak Velocity 63 cm/s MV E/A 1.0 MV Decel Time (PW) 210 ms MV Annular TDI MV E/e' (Septal) 14.3 MV E/e' (Lateral) 9.0 MV E/e' (Average) 11.6 Tricuspid Valve Name Value Normal TV Regurgitation Doppler TR Peak Velocity 213 cm/s TR Peak Gradient 18 mmHg Estimated PAP/RSVP RA Pressure 5 mmHg <=5 PA Systolic Pressure 23 mmHg <36 RV Systolic Pressure 23 mmHg <36 TV Annular TDI TV Lateral Mariama s' Velocity 18.8 cm/s >=9.5 Aorta Name Value Normal Ascending Aorta Ao Root Diameter (MM) 3.1 cm Ao Root Diam Index (MM) 1.9 cm/m2 Aortic Valve Name Value Normal AV Doppler AV Peak Velocity 146 cm/s AV Peak Gradient 8 mmHg AV Mean Gradient 4 mmHg AV VTI 29 cm AV Area (Cont Eq VTI) 2.3 cm2 >=3.0 AV Area (Cont Eq Conrado) 2.4 cm2 AV DI (Conrado) 0.77 AV Regurgitation 2D LVOT Area 3.0 cm2 Ventricles Name Value Normal LV Dimensions 2D/MM IVS Diastolic Thickness (2D) 0.7 cm 0.6-1.0 LVID Diastole (2D) 4.0 cm 3.8-5.2 LVIW Diastolic Thickness (2D) 0.7 cm 0.6-0.9 LVID Systole (2D) 2.4 cm 2.2-3.5 LVOT Diameter 2.0 cm LV Mass (2D Cubed) 79.01 g 67.00-162.00 LV Mass Index (2D Cubed) 47 g/m2 43-95 Relative Wall Thickness (2D) 0.34 <=0.42 LV Fractional Shortening/Ejection Fraction 2D/MM LV Fractional Shortening (2D) 39 % 27-45 LV EF (2D Teichholz) 70 % LV Diastolic Volume (4C MOD) 37 ml LV EF (4C MOD) 71 % LV Diastolic Volume (2C MOD) 34 ml LV EF (2C MOD) 65 % LV Diastolic Volume (BP MOD) 36 ml 46-106 LV Diastolic Volume Index (BP MOD) 22 ml/m2 29-61 LV Systolic Volume (BP MOD) 11 ml 14-42 LV Systolic Volume Index (BP MOD) 7 ml/m2 8-24 LV EF (BP MOD) 68 % 54-74 LV Diastolic Length (4C) 6.5 cm LV Systolic Length (4C) 5.0 cm LV Stroke Volume (4C MOD) 27 ml Atria Name Value Normal LA Dimensions LA Dimension (MM) 3.8 cm 2.7-3.8 LA Volume (4C A-L) 59 ml LA Volume (BP A-L) 53 ml RA Dimensions RA Area (4C) 12.0 cm2 <=18.0 Report Signatures
== END 2024-12-23 07:42 | disposition home or self-care (01) ==
PROVIDERS: PCP Family Medicine; Visit Provider Family Medicine
DX: I63.9 Cerebral infarction, unspecified (principal)
CPT/HCPCS: 93306

== ENCOUNTER 2025-01-30 10:04 | Outpatient (CLI) | payer OTHER, SELFPAY ==
[2025-01-30 10:28] LABS: Hematocrit 42.9 % (37.0-47.0); Hemoglobin 14.2 g/dL (12.0-15.0); Immature Granulocyte Percent A 1.0 % (0-0.5); Lymphocytes Absolute Auto 1.35 K/mm3 (0.9-3.2); Mean Corpuscular HGB Conc 33.1 g/dl (32-36); Mean Corpuscular Hemoglobin 31.6 pg (26-34); Mean Corpuscular Volume 95.5 fl (80-100); Nucleated Red Blood Cells Absolute Auto 0.000 K/mm3 (0.0-0.012); Nucleated Red Blood Cells Perc 0.0 % (0.0-0.2); Platelet Count Result 284 k/mm3 (150-375); Red Blood Count 4.49 M/mm3 (4.2-5.4); White Blood Count 5.9 K/mm3 (4.5-10.0)
[2025-01-30 12:10] LABS: Alanine Aminotransferase 28 U/L (6-35); Albumin Level 4.4 g/dL (3.5-5.1); Alkaline Phosphatase 51 U/L (38-126); Anion Gap 8 mmol/L (4-12); Aspartate Amino Transferase 29 U/L (14-36); Bilirubin,Total 0.6 mg/dL (0.2-1.3); Blood Urea Nitrogen 15 mg/dL (7-17); Calcium 9.1 mg/dL (8.4-10.2); Carbon Dioxide 26 mmol/L (22-30); Chloride 106 mmol/L (98-107); Cholesterol 135 mg/dL (0-200); Estimated Glomerular Filt Rate > 60; Glucose 99 mg/dL (65-110); HDL Direct 61 mg/dL; Potassium 4.2 mmol/L (3.4-5.0); Sodium 140 mmol/L (137-145); Total Protein 7.3 g/dL (6.3-8.2); Triglycerides 83 mg/dL (<150)
[2025-01-30 12:26] LABS: Immunoglobulin A < 40 mg/dL (70-400); Immunoglobulin G < 270 mg/dL (700-1600)
[2025-01-30 12:37] LABS: Thyroid Stimulating Hormone Reflex 2.030 uIU/mL (0.465-4.68)
[2025-01-30 13:14] LABS: Immunoglobulin M 1124 mg/dL (40-230)
[2025-01-31 15:09] LABS: Albumin 3.7 g/dL (2.9-4.4); Alpha-1-Globulin 0.2 g/dL (0.0-0.4); Alpha-2-Globulin 0.7 g/dL (0.4-1.0); Gamma Globulin 1.0 g/dL (0.4-1.8)
[2025-01-31 15:09] LABS: Free Lambda Lt Chains, Serum 4.3 mg/L (5.7-26.3); Kappa/Lambda Ratio, Serum 2.77 (0.26-1.65)
== END 2025-01-30 10:05 | disposition home or self-care (01) ==
LOC: ANHLAB 10:05
PROVIDERS: PCP Family Medicine; Referring Provider Internal Medicine Cardiovascular Disease; Visit Provider Internal Medicine Hematology & Oncology
DX: E78.5 Hyperlipidemia, unspecified (principal); C88.00 Waldenstrom macroglobulinemia not having achieved remission
CPT/HCPCS: 36415; 80053; 80061; 82784; 83521; 84155; 84165; 84443; 85025

== ENCOUNTER 2025-02-23 08:41 | Outpatient (CLI) | payer OTHER, SELFPAY ==
--- NOTE | 2025-02-23 08:52 | EST_ITS ---
Patient Info Name: Alyssa Davis Age: 84 years : 1940 Gender: Female Ht: 62 in Wt: 135 lbs BSA: 1.65 m2 HR: 55 bpm BP: 133 / 74 mmHg Exam Date: 02/23/2025 8:52 AM Patient Status: O Admit Date: 02/23/2025 Exam Type: CA stress test treadmill A treadmill exercise stress test was performed. Staff Attending Provider: Mike Cordero DO Exercise Technologist: Liana Krishnamurthy Exercise Physician: Mike Cordero DO Summary 1. 1. Negative John exercise stress test for ischemic ST changes by ECG criteria. However, patient achieved only 74% MPHR for age group which reduces sensitivity of the test. 2. 2. Poor functional capacity, achieving 4 METs of workload. 3. 3. Appropriate HR response to exercise. 4. 4. Appropriate HR recovery at 1 minute post exercise. 5. 5. No imaging with stress testing. 6. 6. Patient informed of the above results. Protocol: John Stress ECG Details Stage: REST Duration (min): 1 min : 6 sec Speed (mph): 0.0 Grade (%): 0 HR (bpm): 55 SBP (mmHg): 133 DBP (mmHg): 74 METS: --- Stage: REST Duration (min): 4 min : 56 sec Speed (mph): 0.0 Grade (%): 0 HR (bpm): 78 SBP (mmHg): 133 DBP (mmHg): 74 METS: --- Stage: STAGE 1 Duration (min): 1 min : 0 sec Speed (mph): 1.7 Grade (%): 10 HR (bpm): 83 SBP (mmHg): 133 DBP (mmHg): 74 METS: --- Stage: STAGE 1 Duration (min): 1 min : 49 sec Speed (mph): 1.7 Grade (%): 10 HR (bpm): 98 SBP (mmHg): 133 DBP (mmHg): 74 METS: --- Stage: RECOVERY Duration (min): 0 min : 10 sec Speed (mph): 0.0 Grade (%): 0 HR (bpm): 101 SBP (mmHg): 133 DBP (mmHg): 74 METS: --- Stage: RECOVERY Duration (min): 1 min : 10 sec Speed (mph): 0.0 Grade (%): 0 HR (bpm): 81 SBP (mmHg): 133 DBP (mmHg): 74 METS: --- Stage: RECOVERY Duration (min): 2 min : 10 sec Speed (mph): 0.0 Grade (%): 0 HR (bpm): 65 SBP (mmHg): 133 DBP (mmHg): 74 METS: --- Stage: RECOVERY Duration (min): 3 min : 6 sec Speed (mph): 0.0 Grade (%): 0 HR (bpm): 62 SBP (mmHg): 132 DBP (mmHg): 57 METS: --- Rest HR: 78 bpm Peak HR: 101 bpm Rest Sys BP: 133 mmHg Peak Sys BP: 132 mmHg Max Pred HR: 137 bpm % Max Pred HR: 74 % Target HR: 116 bpm Max RPP: 13,332 bpm*mmHg Eric Score: -4 Termination Reason: Reached target heart rate or workload Cardiac Symptoms: Shortness of breath, Fatigue Max ST Seg Deviation: -1.10 mm Total Time: 1 min : 49 sec Rest Matt BP: 74 mmHg Peak Matt BP: 57 mmHg Angina Score: None Total METS: 4.0 Resting ECG Sinus rhythm. Stress ECG No ST changes. Arrhythmias None. Report Signatures
== END 2025-02-23 08:42 | disposition home or self-care (01) ==
PROVIDERS: PCP Family Medicine; Visit Provider Internal Medicine Cardiovascular Disease
DX: R07.9 Chest pain, unspecified (principal)
CPT/HCPCS: 93017

== ENCOUNTER 2025-02-28 13:18 | Outpatient (CLI) | payer OTHER, SELFPAY ==
--- NOTE | ~2025-02-28 | DEXA_ITS ---
Bone Density Report Name: KESHIA BLAIR Age: 84 Sex: Female Ethnicity: White Date of : 1940 Indication: osteopenia; height loss; prior fracture; cancer; rheumatoid arthritis; Referring Provider: MAXIMILIANO DUARTE Study: Bone densitometry was performed. Exam Date: February 28, 2025 Accession number: [id number] Bone Density: Region BMD T-score Z-score Classification AP Spine(L1-L4) 0.897 -1.4 1.5 Osteopenia Femoral Neck (Left) 0.702 -1.3 1.1 Osteopenia Total Hip (Left) 0.858 -0.7 1.6 Normal Femoral Neck (Right) 0.645 -1.8 0.6 Osteopenia Total Hip (Right) 0.767 -1.4 0.8 Osteopenia Total Hip Mean 0.813 -1.1 1.2 Osteopenia World Health Organization criteria for BMD impression classify patients as: Normal (T-score at or above -1.0), Osteopenia (T-score between -1.0 and -2.5), or Osteoporosis (T-score at or below -2.5). 10-year Fracture Risk(1): Major Osteoporotic Fracture 27% Hip Fracture 7.8% Reported Risk Factors: [place] (), Neck BMD=0.645, BMI=29.4, previous fracture, rheumatoid arthritis (1) FRAX(R) Version 3.08. Fracture probability calculated for an untreated patient. Fracture probability may be lower if the patient has received treatment. Previous Exams: Region Exam Age BMD T-score BMD Change BMD Change Date g/cm2 vs Baseline vs Previous AP Spine (L1-L4) 02/28/2025 84 0.897 -1.4 -0.002 (-0.2%) -0.002 (-0.2%) 12/02/2023 83 0.899 -1.3 Total Hip(Left) 02/28/2025 84 0.858 -0.7 -0.015 (-1.8%) -0.015 (-1.8%) 12/02/2023 83 0.874 -0.6 Total Hip(Right) 02/28/2025 84 0.767 -1.4 -0.027 (-3.3%) -0.027 (-3.3%) 12/02/2023 83 0.793 -1.2 *Denotes significance at 95% confidence level, LSC for AP Spine = 0.022 g/cm2, LSC for Total Hip = 0.027 g/cm2 Clinical Information Provided by Patient: Has had a low trauma fracture Has rheumatoid arthritis Has used the following medications: Vitamin D Has the following medical conditions: Cancer, burkinsa Patient maximum height was 62 Menopause Age: 51 Does not regularly consume dairy products Onset of menses at age 12 Number of children 3 Impression: The patient has low bone mass, based on the Right Femoral Neck T-score. The patient has an estimated ten-year risk of hip fracture of 7.8% and an estimated ten-year risk of major fracture of 27%, based on the WHO FRAX algorithm. The patient has risk factors, including: previous fracture. No significant bone loss was observed. Discussion: BONE DENSITY IS LOW AT ONE OR MORE SKELETAL SITES. THE PATIENT'S BMD AND CLINICAL RISK FACTORS CONTRIBUTE TO THIS PATIENT'S HIGH RISK OF FRACTURE. This patient's lowest T-score is low at one or more skeletal sites. It meets the World Health Organization's (WHO) criteria for ?low bone mass? (T-score between -1.0 and -2.5). The patient's 10-year risk of hip fracture and 10 year risk of a major osteoporotic fracture as calculated by FRAX exceeds the threshold where pharmacological therapy is recommended by the National Osteoporosis Foundation (NOF). However, all treatment decisions require clinical judgment and consideration of individual patient factors, including patient preferences, comorbidities, previous drug use, risk factors not captured in the FRAX model (e.g., frailty, falls, vitamin D deficiency, increased bone turnover, interval significant decline in bone density) and possible under or overestimation of fracture risk by FRAX. The patient should follow a healthful lifestyle (good nutrition with adequate calcium and vitamin D, and appropriate weight-bearing exercise). Follow-Up: Consider a repeat BMD and Vertebral Fracture Assessment (VFA) exam in 2 years or sooner if medically necessary, to reassess this patient's status. Reported by: GRAZYNA on 02/28/2025 2:09:00 PM. Reviewed, dictated and finalized at location A.
--- OUTSIDE RECORDS SUMMARY | 2025-02-28 15:24 | XMS_ITS | Encounter Summary ---
Author Organization [facility] Address [address] [facility] [place] [address] Care Team Providers Care Charging Board Operator Name Role Phone Unavailable Primary Care Provider Unavailabl e Encounter Details Date Type Department Care Team (Latest Contact Info) Description 07/07/2023 Lab Requisition [facility] - Pathology Lab [address] [place] [phone] Miguel Reyna MD [address] [address] Waldenstrom macroglobulinemia (HCC) Social History [...] AM CDT) Case Report Flow Cytometry Case: [id number] Authorizing Provider: Miguel Reyna Collected: 07/07/2023 10:40 AM MD John Ordering Location: [facility] - Received: 07/07/2023 12:52 PM Pathology Lab Pathologist: Gabi David MD Specimen: Bone Marrow 07/07/2023 3:41 PM CDT U PATHOLOGY LAB Final Diagnosis Bone marrow, flow cytometry: - Apparent clonal B-cell population detected (~5% of overall cellularity) 07/07/2023 3:41 PM [facility] PATHOLOGY LAB at 1541 CDT Flow Cytometry Interpretation Viability: 71% B-cells: monoclonal, kappa-restricted, ~5%, CD19+, CD20+ with no CD5 or CD10 co-expression. T-cells: not increased Blasts: not increased Plasma cells: no significant population detected A bone marrow aspirate smear prepared from the flow cytometry specimen has been reviewed for quality analyst/technical writer purposes. 07/07/2023 3:41 PM [facility] PATHOLOGY LAB Flow Cytometry Results Differential Result Comment Flow Cell Count /uL 6,800 Total Viability % 71.0 Lymphocytes % 29 Dim CD45 Region % 2 Monocytes % 9 Granulocytes % 58 07/07/2023 3:41 PM [facility] PATHOLOGY LAB Reason for test Waldenstrom macroglobulinemia (HCC) 273.3 07/07/2023 3:41 PM [facility] PATHOLOGY LAB Client Specimen ID # [id number] 07/07/2023 3:41 PM [facility] PATHOLOGY LAB Number of markers 14 were performed. A-2 Flow CD10 A-3 Flow CD13 A-5 Flow CD20 A-13 Flow CD117 A-14 FLOW CD138 A-1 Flow CD5 A-4 Flow CD19 A-6 Flow CD33 A-7 Flow CD34 A-8 Flow CD45 A-11 Flow CD38 A-12 Flow CD56 A-9 [place]+CD19+ A-10 Lambda+CD19+ 07/07/2023 3:41 PM [facility] PATHOLOGY LAB Pathologist Location at [facility] 07/07/2023 3:41 PM [facility] PATHOLOGY LAB Disclaimer Test performed at [facility], [address] [place] [address], [address]. *The established laboratory minimum viability is 70%. [...] complexity clinical testing. 07/07/2023 3:41 PM CDT [facility] PATHOLOGY LAB Embedded Images 3:41 PM CDT [facility] PATHOLOGY LAB Pathology/Cytolo gy BONE MARROW SPECIMEN / Unknown 07/07/2023 10:40 AM CDT 07/07/2023 12:52 PM CDT Miguel Reyna MD LAB - PATHOLOGY/CYT OLOGY ORDERABLES Final Result [facility] PATHOLOGY LAB [address] [facility] [place] [address], [facility] [phone] documented in this encounter Visit Diagnoses Diagnosis Waldenstrom macroglobulinemia (HCC) Macroglobulinemia documented in this encounter
--- OUTSIDE RECORDS SUMMARY | 2025-02-28 15:24 | XMS_ITS | Patient Health Record ---
Author Organization [facility] Address [address] [place] [address] Support Name Relationship Address Phone KESHIA BLAIR Guarantor Unknown [phone] Reason For Referral No Information Medications Medication [...] years or older Unknown 11/15/2019 Administered Pfizer Hiperos Covid-19 Vac cine 2nd dose Unknown 05/03/2020 Administered Pneumococcal polysaccharide PPV23 Unknown 10/15/2020 Ad ministered Social History Social History Additional Details Category Social Info Options Details Migrated Social History Migrated Social History Alcohol intake : denies alcohol use ST , Details of drug misuse behavior : denies Illegal Drug Use ST , Smoking Status : smoking status - Former smoker Problems Problem Type SNOMED Code ICD Code Onset Dates Problem Status W/U Status Risk Notes Problem Waldenstrom macroglobulinemia (63728762) Waldenstrom macroglobulinemia (C88.0) Active confirmed Problem Eustachian tube disorder (00699861) Other specified disorders of Eustachian tube, unspecified ear (H69.80) Active confirmed Problem Sensorineural hearing loss (76777258) Unspecified sensorineural hearing loss (H90.5) Active confirmed Problem Tinnitus (35327014) Tinnitus, unspecified ear (H93.19) Active confirmed Problem Disorder of ear (68859432) Other specified disorders of ear, bilateral (H93.8X3) Active confirmed Problem Body mass index 25-29 - overweight (773935712) Body mass index (BMI) 26.0-26.9, adult (Z68.26) Active confirmed Plan Of Treatment No Information Insurance Providers Payer Name Payer Address Payer Phone Subscriber Number Group Number Insured Name Patient Relationship to Insured Coverage Start Date Coverage End Date Medicare Part B Me [address] [place] [phone] [id number] KESHIA BLAIR Self - patient is the insured [address] [employer] [address] [address] [place] [address] [id number] KESHIA BLAIR Self - patient is the insured 9
--- OUTSIDE RECORDS SUMMARY | 2025-02-28 15:24 | XMS_ITS | Encounter Summary ---
Author Organization [facility] Address [address] [facility] [place] [address] Care Team Providers Care Geography Professor Name Role Phone Unavailable Primary Care Provider Unavailabl e Encounter Details Date Type Department Care Team (Late st Contact Info) Description 07/08/2023 Lab Requisition [facility] - Pathology Lab [address] [place] [phone] Miguel Reyna MD [address] [address] Illness, unspecified Social History Tobacco [...] Report Bone Marrow Patholog y Report Case: [id number] Authorizing Provider: Miguel Reyna Collected: 07/07/2023 09:40 AM MD John Ordering Location: [facility] - Received: 07/08/2023 01:53 [...] cellularity). - See description. 07/09/2023 9:24 AM [facility] PATHOLOGY LAB at 0924 CDT AP Comment [...] due to staining artifact. 07/09/2023 9:24 AM [facility] PATHOLOGY LAB Peripheral Smear Description Not submitted. 07/09/2023 9:24 AM [facility] PATHOLOGY LAB Bone Marrow Aspirate Differential count [...] stain): no ring sideroblasts. 07/09/2023 9:24 AM [facility] PATHOLOGY LAB Bone Marrow Core Biopsy and [...] similar to core biopsy. 07/09/2023 9:24 AM [facility] PATHOLOGY LAB Flow Cytometry Summary Bone marrow, flow cytometry ([id number]): - Apparent clonal B-cell population detected (~5% of overall cellularity) 07/09/2023 9:24 AM T [facility] PATHOLOGY LAB Clinical History Lymphoplasmacytic lymphoma diagnosed in 2019. 07/09/2023 9:24 AM T [facility] PATHOLOGY LAB Microscopic Description Received are 26 slide(s) and 4 blocks labeled [id number] along with a copy of the outside pathology report. [place] [address] . All original materials are returned to the referring institution, along with a copy of our final report. 07/09/2023 9:24 AM [facility] Pathologist Location at [facility] 07/09/2023 9:24 AM [facility] PATHOLOGY LAB Disclaimer The performance characteristics of all immunohistochemical and indirect immunofluorescence stains (if any) cited in this report were determined by the Histopathology Laboratory of [facility]. Some of these tests were [...] the attending (teaching) pathologist. 07/09/2023 9:24 AM [facility] PATHOLOGY LAB Embedded Images 07/09/2023 9:24 AM T [facility] PATHOLOGY LAB Pathology/Cytology BONE MARROW SPECIMEN / Unknown 07/07/2023 9:40 AM CDT 07/08/2023 1:53 PM CDT Miscellaneous samples (specimen) BONE MARROW SPECIMEN / Unknown 07/07/2023 9:40 AM CDT 07/08/2023 1:53 PM CDT us Miguel Reyna MD LAB - PATHOLOGY/CYT OLOGY ORDERABLES Final Result [facility] PATHOLOGY LAB [address] [place] [address], [facility] [phone] documented in this encounter Visit Diagnoses Diagnosis Illness, unspecified documented in this encounter
--- OUTSIDE RECORDS SUMMARY | 2025-02-28 15:24 | XMS_ITS | Clinical Summary ---
Author Organization [facility] Johanna medrano Jeannette Address [address] [place] [place] [address] Care Team Providers Care Computer Operations Specialist Name Role Phone Kimberly Turner MD Primary Care Provider [phone] Allergies Active Allergy Reactions Criticality Noted Date [...] Dose Pack Use as directed 21 Tablet Active zanubrutinib (Brukinsa) 80 mg capsuleIndicat ions:Macroglob ulinemia of Waldenstrom (CMS/HCC) TAKE 2 CAPSULES BY MOUTH TWICE DAILY. 120 Capsule 1 025 Active alendronate (FOSAMAX) 70 mg tablet TAKE 1 TABLET (70 MG) BY MOUTH EVERY 7 DAYS ON AN EMPTY STOMACH BEFORE OTHER MEDS,WITH 8OZ OF WATER, STAY UPRIGHT 30 MIN 12 Tablet 1 025 Active alendronate (FOSAMAX) 70 mg tablet TAKE 1 TABLET (70 MG) BY MOUTH EVERY 7 DAYS ON AN EMPTY STOMACH BEFORE OTHER MEDS,WITH 8OZ OF WATER, STAY UPRIGHT 30 MIN 12 Tablet 1 025 2024 Discontinued Active Problems No known active problems Encounters Date Type Department Care Team Description 02/24/2025 Refill [facility] Oncology and Hematology - Willie [address] Luis Eduardo Dumont MD 02/07/2025 4:30 PM CLOTH PRESSER Telephone Check Up [facility] Oncology and Hematology - Willie [address] [place] [id number] Luis Eduardo Dumont MD Macroglobulinemia of Waldenstrom (CMS/HCC) (Primary Dx) 02/01/2025 Orders Only [facility] Oncology and Hematology - Willie [address] [place] [id number] Luis Eduardo Dumont MD 01/31/2025 Orders Only [facility] Oncology and Hematology - Willie [address] [place] [phone] Luis dEuardo Dumont MD 01/30/2025 Orders Only [facility] Oncology and Hematology - Willie [address] [place] [address] Luis Eduardo Dumont MD 01/11/2025 External Device Data STL ABSTRACTION Provider, Abstract 01/05/2025 Abstract [facility] Oncology and Hematology - Willie [address] [place] [phone] Luis Eduardo Dumont MD 01/03/2025 External Device Data STL ABSTRACTION Provider, Abstract 12/30/2024 Abstract [facility] Oncology and Hematology - Willie [address] [place] [address] Luis Eduardo Dumont MD 12/01/2024 Abstract [facility] Oncology and Hematology - Willie [address] [place] [address] Luis Eduardo Dumont MD from Last 3 [...] Care Team (Late st Contact Info) Description 05/31/2025 10:15 AM CDT Office Visit [facility] Oncology and Hematology - Willie [address] [facility] [address] [place] [address] Luis Eduardo Dumont MD [address] [facility] [address] [place] [address] Health Maintenance Due Date Last [...] Associated Diagnosis Comments PROTEIN ELECTROPHORESIS, CSF Routine 01/31/2025 1:45 PM CLOTH PRESSER CBC WITH AUTODIFFERENTIAL Routine 2024 11:58 AM CLOTH PRESSER COMPREHENSIVE METABOLIC PANEL Routine 01/30/2025 11:16 AM CLOTH PRESSER from Last 3 Months Results * PROTEIN ELECTROPHORESIS, CSF (01/31/2025 1:45 PM CLOTH PRESSER) Cerebrospinal fluid CEREBROSPINAL FLUID / Unknown us Luis Eduardo Dumont MD BODY FLUIDS AND STOOLS Final Re sult * CBC WITH AUTODIFFERENTIAL (01/30/2025 11:58 AM CLOTH PRESSER) Blood us Luis Eduardo Dumont MD HEMATOLOGY ORDERABLES Final Res ult * COMPREHENSIVE METABOLIC PANEL (01/30/2025 11:16 AM CLOTH PRESSER) Blood us Luis Eduardo Dumont MD CHEMISTRY ORDERABLES Final Resu lt from Last 3 Months Insurance [employer] PPO MCR RX MEDIMPACT Member Subscriber Plan / Payer ( fective 2023-Present) Name:Alyssa Davis Relation to Subscriber:Self Name:Alyssa Davis Payer ID:Not on file Group ID:[id number] Type:RX Medicare Part D Address: [address] [place] [facility] [employer] Medicare Part D RX [employer] Medicare Part D Care Teams Computer Operations Specialist Relationship Specialty Start Date End Date Kimberly Turner MD [address] [place] [phone] PCP - General Family Practice 01/02/23
--- OUTSIDE RECORDS SUMMARY | 2025-02-28 15:24 | XMS_ITS | Clinical Summary ---
Author Organization [facility] Address [address] [place] [address] Care Team Providers Care Sanitation Supervisor Name Role Phone Unavailable Primary Care Provider Unavailabl e Source Comments [facility],non-owned Affiliates and Associated Physician Practices is amultiple site organization consisting of ambulatory clinics and hospital sitesin [place], [place], [place] and [place]. This disclosure is being madepursuant to the Care Everywhere program and may not contain all information available regarding this patient. Last updated 17.[facility] Social History Tobacco Use Types Packs/Day Years [...] DEPRESSION SCREENING 03/16/2024 COVID-19 VACCINE ( - 2024-2 6 season) 2024 INFLUENZA VACCINE (#1) 2024 HEPATITIS [...]
== END 2025-02-28 13:19 | disposition home or self-care (01) ==
LOC: ANHFOHIMG 13:19
PROVIDERS: PCP Family Medicine; Visit Provider Internal Medicine Endocrinology, Diabetes & Metabolism
DX: M85.89 Other specified disorders of bone density and structure, multiple sites (principal); S22.080A Wedge compression fracture of T11-T12 vertebra, initial encounter for closed fracture; Z78.0 Asymptomatic menopausal state
CPT/HCPCS: 77080

== ENCOUNTER 2025-03-03 09:23 | Outpatient (CLI) | payer OTHER, SELFPAY ==
--- NOTE | ~2025-03-03 | MM_ITS ---
EXAMINATION: MM screening [facility] BI w emi HISTORY: Screening TECHNIQUE: Craniocaudal and mediolateral oblique 3-D tomosynthesis images were obtained and synthetic 2-D images were generated. CAD analysis was submitted and interpreted. COMPARISON: Comparison to multiple prior studies sequentially, with oldest reviewed study dated 12/30/2023. BREAST PARENCHYMAL COMPOSITION: FINDINGS: Stable benign-appearing asymmetry in the upper inner quadrant of the left breast, middle-posterior depth. There is no evidence of suspicious mass, calcification, or architectural distortion to suggest malignancy in either breast. There has been no suspicious interval change. IMPRESSION: 1. No mammographic evidence of malignancy. 2. Recommend routine screening mammography in one year. BI-RADS Category 2: Benign finding(s). Reviewed, dictated and finalized at location O. OR UX DESIGNER
--- OUTSIDE RECORDS SUMMARY | 2025-03-03 09:41 | XMS_ITS | Clinical Summary ---
Author Organization [facility] Johanna medrano Jeannette Address [address] [place] [address] Care Team Providers Care Chimney Construction Supervisor Name Role Phone Kimberly Turner MD Primary Care Provider [phone] Allergies Active Allergy Reactions Criticality Noted Date [...] Type Department Care Team Description 02/24/2025 Refill [facility] Oncology and Hematology - Willie [address] Luis Eduardo Dumont MD 02/07/2025 4:30 PM CHIEF LOCK TENDER OPERATOR Telephone Check Up [facility] Oncology and Hematology - Willie [address] [place] [address] Luis Eduardo Dumont MD Macroglobulinemia of Waldenstrom (CMS/HCC) (Primary Dx) 02/01/2025 Orders Only [facility] Oncology and Hematology - Willie [address] [place] [address] Luis Eduardo Dumont MD 01/31/2025 Orders Only [facility] Oncology and Hematology - Willie [address] [place] [address] Luis Eduardo Dumont MD 01/30/2025 Orders Only [facility] Oncology and Hematology - Willie [address] [place] [address] Luis Eduardo Dumont MD 01/11/2025 External Device Data STL ABSTRACTION Provider, Abstract 01/05/2025 Abstract [facility] Oncology and Hematology - Willie [address] [place] [address] Luis Eduardo Dumont MD 01/03/2025 External Device Data STL ABSTRACTION Provider, Abstract 12/30/2024 Abstract [facility] Oncology and Hematology - Willie [address] [place] [address] Luis Eduardo Dumont MD from [...] Description 05/31/2025 10:15 AM CDT Office Visit [facility] Oncology and Hematology - Willie [address] [facility] [address] [place] [address] Luis Eduardo Dumont MD [address] [facility] [address] [place] [address] Health Maintenance Due Date Last [...] PROTEIN ELECTROPHORESIS, CSF Routine 01/31/2025 1:45 PM CHIEF LOCK TENDER OPERATOR CBC WITH AUTODIFFERENTIAL Routine 2024 11:58 AM CHIEF LOCK TENDER OPERATOR COMPREHENSIVE METABOLIC PANEL Routine 01/30/2025 11:16 AM CHIEF LOCK TENDER OPERATOR from Last 3 Months Results * PROTEIN ELECTROPHORESIS, CSF (01/31/2025 1:45 PM CHIEF LOCK TENDER OPERATOR) Cerebrospinal fluid CEREBROSPINAL FLUID / Unknown us Luis Eduardo Dumont MD BODY FLUIDS AND STOOLS Final Re sult * CBC WITH AUTODIFFERENTIAL (01/30/2025 11:58 AM CHIEF LOCK TENDER OPERATOR) Blood us Luis Eduardo Dumont MD HEMATOLOGY ORDERABLES Final Res ult * COMPREHENSIVE METABOLIC PANEL (01/30/2025 11:16 AM CHIEF LOCK TENDER OPERATOR) Blood us Luis Eduardo Dumont MD CHEMISTRY ORDERABLES Final Resu lt from Last 3 Months Insurance [employer] PPO MCR RX MEDIMPACT Member Subscriber Plan / Payer (Ef fective 2023-Present) Name:Alyssa Davis Relation to Subscriber:Self Name:Alyssa Davis Payer ID:Not on file Group ID:[id number] Type:RX Medicare Part D Address: [place] [facility] [employer] Medicare Part D RX [employer] Medicare Part D Care Teams Chimney Construction Supervisor Relationship Specialty Start Date End Date Kimberly Turner MD [address] [place] [phone] PCP - General Family Practice 01/02/23
--- OUTSIDE RECORDS SUMMARY | 2025-03-03 09:41 | XMS_ITS | Encounter Summary ---
Author Organization [facility] Address [address] [place] [address] Care Team Providers Care Manager Cafe Name Role Phone Unavailable Primary Care Provider Unavailabl e Encounter Details Date Type Department Care Team (Latest Contact Info) Description 07/07/2023 Lab Requisition [facility] - Pathology Lab [address] [place] [address] Miguel Reyna MD [address] [address] Waldenstrom macroglobulinemia (HCC) Social History [...] AM CDT) Case Report Flow Cytometry Case: [id number] Authorizing Provider: Miguel Reyna Collected: 07/07/2023 10:40 AM MD John Ordering Location: [facility] - Received: 07/07/2023 12:52 [...] flow cytometry specimen has been reviewed for lead quality technician purposes. 07/07/2023 3:41 PM [facility] [...] A-11 Flow CD38 A-12 Flow CD56 A-9 Mullen+CD19+ A-10 Lambda+CD19+ 07/07/2023 3:41 PM [facility] PATH[facility]Y [facility] Pathologist Location at [facility] 07/07/2023 3:41 PM [facility] PATHOLOGY LAB Disclaimer Test performed at [facility], [address] [place] [address], [address]. *The established laboratory minimum viability is 70%. [...] complexity clinical testing. 07/07/2023 3:41 PM CDT [facility] PATHOLOGY LAB Embedded Images 3:41 PM CDT [facility] LAB Pathology/Cytolo gy BONE MARROW SPECIMEN / Unknown 07/07/2023 10:40 AM CDT 07/07/2023 12:52 PM CDT Miguel Reyna MD LAB - PATHOLOGY/CYT OLOGY ORDERABLES Final Result [facility] PATHOLOGY LAB [address] [facility] [place] [address], [facility] [phone] documented in this encounter Visit Diagnoses Diagnosis Waldenstrom macroglobulinemia (HCC) Macroglobulinemia documented in this encounter
--- OUTSIDE RECORDS SUMMARY | 2025-03-03 09:41 | XMS_ITS | Clinical Summary ---
Author Organization [facility] Address [address] [place] [address] Care Team Providers Care Wax Pattern Repairer Name Role Phone Unavailable Primary Care Provider Unavailabl e Source Comments [facility],non-owned Affiliates and Associated Physician Practices is amultiple site organization consisting of ambulatory clinics and hospital sitesin [place], [place], [place] and [place]. This disclosure is being madepursuant to the Care Everywhere program and may not contain all information available regarding this patient. Last updated 17.[facility] Social History Tobacco Use Types Packs/Day Years [...]
--- OUTSIDE RECORDS SUMMARY | 2025-03-03 09:41 | XMS_ITS | Encounter Summary ---
Author Organization [facility] Address [address] [facility] [place] [address] Care Team Providers Care Residential Sales Rep Name Role Phone Unavailable Primary Care Provider Unavailabl e Encounter Details Date Type Department Care Team (Late st Contact Info) Description 07/08/2023 Lab Requisition [facility] - Pathology Lab [address] [place] [phone] Miguel Reyna MD [address] [address] Illness, unspecified Social History Tobacco [...] Report Bone Marrow Patholog y Report Case: [id number] Authorizing Provider: Miguel Reyna Collected: 07/07/2023 09:40 AM MD John Ordering Location: [facility] - Received: 07/08/2023 01:53 PM [...] cellularity). - See description. 07/09/2023 9:24 AM [facility] PATHOLOGY LAB at 0924 CDT AP Comment Immunohistochemistry is performed to assess staining cells in an architectural context: CD20 highlights ~30% of marrow cellularity as B-cells. CD138 highlights ~15% pf marrow cellularity as plasma cells. PAX-5 and Cd79a highlight ~40% of marrow cellularity as B-cells and plasma cells. In situ hybridization (MAYR) for kappa and lambda mRNA on the clot section is not interpretable due to staining artifact. MARY for kappa mRNA on the core is not interpretable due to staining artifact. 07/09/2023 9:24 AM [facility] PATH[facility] Peripheral Smear Description Not submitted. 07/09/2023 9:24 AM [facility] Bone Marrow Aspirate [...] stain): no ring sideroblasts. 07/09/2023 9:24 AM [facility] Bone Marrow Core [...] similar to core biopsy. 07/09/2023 9:24 AM [facility] Flow Cytometry Summary Bone marrow, flow cytometry ([id number]): - Apparent clonal B-cell population detected (~5% of overall cellularity) 07/09/2023 9:24 AM [facility] Clinical History Lymphoplasmacytic lymphoma diagnosed in 2019. 07/09/2023 9:24 AM T [facility] Microscopic Description Received are 26 slide(s) and 4 blocks labeled [id number] along with a copy of the outside pathology report. [place] [address] . All original materials are returned to the referring institution, along with a copy of our final report. 07/09/2023 9:24 AM [facility] Pathologist Location at [facility] 07/09/2023 9:24 AM [facility] Disclaimer The performance characteristics of all immunohistochemical and indirect immunofluorescence stains (if any) cited in this report were determined by the Histopathology Laboratory of [facility]. Some of these tests were developed [...] the attending (teaching) pathologist. 07/09/2023 9:24 AM [facility] PATH[facility] LAB Embedded Images 07/09/2023 9:24 AM T [facility] Pathology/Cytology BONE MARROW SPECIMEN / Unknown 07/07/2023 9:40 AM CDT 07/08/2023 1:53 PM CDT Miscellaneous samples (specimen) BONE MARROW SPECIMEN / Unknown 07/07/2023 9:40 AM CDT 07/08/2023 1:53 PM CDT us Miguel Reyna MD LAB - PATHOLOGY/CYT OLOGY ORDERABLES Final Result [facility] [address] [place] [address], [facility] [phone] documented in this encounter Visit Diagnoses Diagnosis Illness, unspecified documented in this encounter
--- OUTSIDE RECORDS SUMMARY | 2025-03-03 09:41 | XMS_ITS | Patient Health Record ---
Author Organization [facility] Address [address] [place] [address] Support Name Relationship Address Phone KESHIA BLAIR Guarantor Unknown [phone] Reason For Referral No Information Medications Medication [...] years or older Unknown 11/15/2019 Administered Pfizer Volumental Covid-19 Vac cine 2nd dose Unknown 05/03/2020 [...] W/U Status Risk Notes Problem Waldenstrom macroglobulinemia (49152207) Waldenstrom macroglobulinemia (C88.0) Active confirmed Problem Eustachian tube disorder (42745231) Other specified disorders of Eustachian tube, unspecified ear (H69.80) Active confirmed Problem Sensorineural hearing loss (72709475) Unspecified sensorineural hearing loss (H90.5) Active confirmed Problem Tinnitus (72091185) Tinnitus, unspecified ear (H93.19) Active confirmed Problem Disorder of ear (11812852) Other specified disorders of ear, bilateral (H93.8X3) Active confirmed Problem Body mass index 25-29 - overweight (269962320) Body mass index (BMI) 26.0-26.9, adult (Z68.26) Active confirmed Plan Of Treatment No Information Insurance Providers Payer Name Payer Address Payer Phone Subscriber Number Group Number Insured Name Patient Relationship to Insured Coverage Start Date Coverage End Date Medicare Part B Ri [address] [place] [address] [id number] KESHIA BLAIR Self - patient is the insured [address] [employer] [address] [address] [place] [address] [id number] KESHIA BLAIR Self - patient is the insured 9
== END 2025-03-03 09:24 | disposition home or self-care (01) ==
LOC: ANHFOHIMG 09:25
PROVIDERS: PCP Family Medicine; Visit Provider Family Medicine
DX: Z12.31 Encounter for screening mammogram for malignant neoplasm of breast (principal)
CPT/HCPCS: 77063; 77067